=== PATIENT | male | born 1965 | race Caucasian/White ===

== ENCOUNTER 2016-10-16 12:03 | Emergency (ER) | payer OTHER ==
[~2016-10-16] VITALS: Ht 177.8 cm; Wt 74.1 kg
[~2016-10-16 12:03] MED LIST: ASPI-973 PO; BIMA2.5D5 OD; BIOT10003 PO; CETI10CA PO; CHOL200047 PO; ESOM40CA41 PO; FOLI1TAB18 PO; INSU100C8 SUBQ; INSU300I; LISI1TAB9 PO; ONDA-54 PO; PROM12.510 PO; SIMV80TA4 PO; TUMERIC PO
[2016-10-16] MEDS ORDERED: 0.9% Sodium Chloride 1,000 ML IV ONE (12:16)
[2016-10-16 12:35] VITALS: BP 113/76; PULSE 104; RESP 16; O2SAT 98
[2016-10-16 12:35] LABS: BASOPHILS % (AUTO) 0.4 % (0-3); EOSINOPHILS % (AUTO) 16.5 % (0-5); MONOCYTES % (AUTO) 11.9 % (4-12); Mean Corpuscular Hemoglobin 28.9 pg (27.0-35.0); Mean Corpuscular Volume 89.1 fL (81-100); NEUTROPHILS % (AUTO) 60.7 % (40-74); Platelet Count 420 bil/L (150-400)
--- NOTE | 2016-10-16 12:51 | ED.REPORT ---
HPI-General Illness Date of Service Oct 16, 2016 ED Provider: Bhaskar Staton MD Pt is a 51 year old male with a history of DM, HTN, and stage 4 metastatic lung cancer who presents to the ED by recommendation of his oncologist Dr. Iniguez due to hyperkalemia of 7.2 found this morning on routine labs. He is asymptomatic. He took two potassium draws at his Oncologist, and found that they were high. He was feeling nauseated, and started eating oranges on his way to the appointment. He didn't initially take insulin, but when he got home, his blood sugar was 394, which prompted him to correct with insulin. Pt reports no renal effect due to cancer. Nursing Notes Stated Complaint: HIGH POTASSIUM LEVELS/SENT BY DOC Chief Complaint: Male Abdominal Pain Nursing Notes Reviewed: Yes Allergies: Coded Allergies: TAPE (Unverified Allergy, Severe, rash, skin break, 03/01/16) latex (Verified Allergy, Unknown, 02/22/16) Scheduled ([tumeric supp]) 500 MG PO DAILY Aspirin (Aspirin) 81 Mg Tablet 81 MG PO DAILY Bimatoprost (Lumigan) 45 Drop/2.5 Ml Ophsoln 45 DROP OD HS Biotin (Biotin) 10,000 Mcg Capsule 10,000 MCG PO DAILY Cetirizine HCl (Zyrtec) 10 Mg Capsule 10 MG PO HS Cholecalciferol (Vitamin D3) (Vitamin D3) 2,000 Unit Capsule 2,000 UNIT PO DAILY Esomeprazole Magnesium (Nexium) 40 Mg Capsule.dr 40 MG PO DAILY Folic Acid (Folic Acid) 1 Mg Tablet 1 MG PO DAILY Insulin Aspart (NovoLOG U100 Insulin Vial) 100 U/Ml U 1 UNIT SUBQ DIRECTED Lisinopril / HCTZ 20-12.5 mg (Lisinopril / HCTZ 20-12.5 mg) 1 Each Tablet 1 EACH PO DAILY Simvastatin (Simvastatin) 80 Mg Tablet 80 MG PO HS Scheduled PRN Ondansetron (Ondansetron) 8 Mg Tablet 8 MG PO Q8H PRN PRN For Nausea/Vomiting Miscellaneous Medications Insulin Glargine,Hum.rec.anlog (Toujeo Solostar) 300 Unit/Ml (1.5 Ml) Insuln.pen General Time Seen by MD: 12:49 Chief Complaint Other (High potassium levels) Hx Obtained From: Patient Arrived By: Walk-in Sudden in Onset?: No Symptom Duration: 5 - 8 hours Severity: Current: No pain currently Severity: Maximum: No pain Recent Healthcare: Recent doctor visit Similar Sx Previous: No Past Medical History Past Medical History Stage 4 metastatic lung cancer Reports: Diabetes mellitus, Hypertension Past Surgical History Orthopedic surgeries Family History Noncontributory Smoking History Former Smoker Social History Alcohol Use: "Social" Drug Use: Denies drug use Other Social History: Good social support, Local resident Ambulatory Status Independent Review of Systems Full Review of Systems Respiratory: Denies: Non-productive cough, Shortness of breath Cardiovascular: Denies: Chest pain GI: Denies: Abdominal pain Complete sys rev & neg: except as marked. Physical Exam Vital Signs Vital Signs Date Time Temp Pulse Resp B/P Pulse Ox O2 Delivery O2 Flow Rate FiO2 10/16/16 14:56 36.7 98 18 112/72 98 Room Air 10/16/16 12:35 36.7 104 16 113/76 98 Room Air Initial VS: Reviewed, Vital signs abnormal Head / Eyes: Atraumatic, Normocephalic, PERRL ENT: Mucous membranes moist, Conjunctiva normal Neck: Supple, Non-tender, Full range of motion Respiratory: Breath sounds normal, Clear to auscultation, No respiratory distress Extremities: Vascular intact, Neuro intact Skin: Warm, Dry, No cyanosis Neurologic: Alert, Oriented, Nonfocal Psychiatric: Mood/affect normal, Behavior normal General/Constitutional: Awake, Alert, No acute distress, Cooperative, Not toxic appearing Cardiovascular: Regular rhythm, Heart sounds NL Heart Rate / Rhythm: Positive: Tachycardia (Rate of 100) Abdomen: Atraumatic, Soft, Non-tender Interpretation & Diagnostics Lab Results Interpretation Result Diagram: 10/16/16 1227 10/16/16 1227 Test 10/16/16 12:27 10/16/16 13:20 White Blood Count 9.6th/mm3 (3.8-10.1) Red Blood Count 4.22mil/mm3 (4.40-5.80) Hemoglobin 12.2g/dL (13.8-17.2) Hematocrit 37.6% (41.0-50.0) Mean Corpuscular Volume 89.1fL (81-100) Mean Corpuscular Hemoglobin 28.9pg (27.0-35.0) Mean Corpuscular Hemoglobin Concent 32.4% (32.0-37.0) Red Cell Distribution Width 13.8% (12.3-15.4) Platelet Count 420bil/L (150-400) Neutrophils (%) (Auto) 60.7% (40-74) Lymphocytes (%) (Auto) 10.3% (14-46) Monocytes (%) (Auto) 11.9% (4-12) Eosinophils (%) (Auto) 16.5% (0-5) Basophils (%) (Auto) 0.4% (0-3) Sodium Level 133mEq/L (134-144) Potassium Level 5.1mEq/L (3.5-5.2) Chloride Level 99mEq/L (97-108) Carbon Dioxide Level 22mmol/L (18-29) Blood Urea Nitrogen 28mg/dL (6-24) Creatinine 1.51mg/dL (0.76-1.27) Estimat Glomerular Filtration Rate 52mL/min (>59) Glucose Level 107mg/dL (60-99) Calcium Level 9.2mg/dL (8.5-10.1) Magnesium Level 1.9mg/dL (1.6-2.6) Total Bilirubin 0.3mg/dL (0.0-1.2) Aspartate Amino Transf (AST/SGOT) 32U/L (0-50) Alanine Aminotransferase (ALT/SGPT) 23U/L (0-44) Alkaline Phosphatase 89U/L (25-150) Total Protein 6.8g/dL (6.4-8.4) Albumin 3.1g/dL (3.4-5.0) Hold Levine Top Tube Received (Received) Urine Color Straw (YELLOW) Urine Appearance Hazy (CLEAR,HAZY) Urine pH 6.5 (5.0-8.0) Urine Specific [place] 1.010 (1.003-1.035) Urine Protein Negativemg/dL (NEG,TRACE) Urine Glucose (UA) 250mg/dL (NEGATIVE) Urine Ketones Negativemg/dL (NEGATIVE) Urine Occult Blood Negative (NEGATIVE) Urine Nitrite Negative (NEGATIVE) Urine Bilirubin Negative (NEGATIVE) Urine Urobilinogen Normalmg/dL (NORMAL) Urine Leukocyte Esterase Negative (NEGATIVE) Urine RBC 0-2/hpf (0-2) Urine WBC 0-5/hpf (0-5) Urine Epithelial Cells Occasional/hpf (NONE-MOD) Urine Crystals None seen (NONE SEEN) Urine Bacteria Few/hpf (NONE-FEW) Urine Hyaline Casts None/lpf (NONE) Urine Granular Casts None seen (NONE SEEN) Urine Waxy Casts None seen (NONE SEEN) Urine Red Blood Cell Casts None seen (NONE SEEN) Urine White Blood Cell Casts None seen (NONE SEEN) Urine Mucus None seen (None Seen) Urine Trichomonas None seen (NONE SEEN) Urine Yeast None (NONE SEEN) Urinalysis Comment None Urine Culture Reflexed Not indicated X-Ray Chest Interpretation Chest Xray Interpretation: IMPRESSION: 1. No radiograph evidence for pneumonia. 2. Small left effusion, unchanged. 3. Right apical mass seen on CT not well seen on the chest x-ray. Dictated by: Arlin Roy M.D. on 10/16/2016 at 14:43 Interpretation / Wet Read by: Interpret - Radiologist Re-Eval/Medical Decision Source of Hx: Old records Time of Eval: 14:25 Re-Evaluation/Progress Note: Pt rechecked. Rales on when laying supine on left side. Time of Eval: 14:47 Re-Evaluation/Progress Note: Pt rechecked. Informed pt of plan for treatment. Pt understands and agrees with plan for treatment. F/U instructions and RTER warnings given. All questions addressed. Consultation : Referral / Consult Name: Tho Iniguez MD Call Returned at: 13:30 Analog Circuit Designer: Agrees with eval, Agrees with plan Note: Consult with Oncologist. No further treatment, pt is good to go home. Counseled Regarding: Diagnosis, Lab results, Need for follow-up, When/why to return to ED Discharge & Departure Primary Impression: Hyperkalemia Additional Impression: Recurrent left pleural effusion Disposition: Home Discharge Condition All VS Reviewed: Yes Condition: Stable Patient Instructions: Hyperkalemia (ED) Additional Instructions: Your potassium was normal today at 5.1. Follow up with your primary care provider as scheduled. There is a small pleural effusion on the chest x-ray but this is about the same as it was comparing it to the CT scan from last month. Return to the Emergency Department if you experience chest pain, increased shortness of breath, or any other concerning symptoms. Let me know when you are free to go out to lunch or come over for dinner. [phone] Referrals: Zane Mejia MD (PCP) Geovanna Attestation Portions of this note were transcribed by Gigi Ramos and Elza Salazar. I, Dr. Staton personally performed the history, physical exam and medical decision-making; I reviewed and confirmed the accuracy of the information in the transcribed note. Signed by: Gigi Ramos and Geovanna Latham, 10/16/16 and 14:30 copies to: Zane Mejia MD, Kirk H MD Oct 16, 2016 12:51 Elza Whitten Oct 16, 2016 12:58 GIGI RAMOS Oct 16, 2016 14:12
[2016-10-16 12:57] LABS: Magnesium 1.9 mg/dL (1.6-2.6)
[2016-10-16 13:55] LABS: APPEARANCE,URINE HAZY (CLEAR,HAZY); COLOR,URINE STRAW (YELLOW); OCCULT BLOOD,URINE NEGATIVE (NEGATIVE); PH,URINE 6.5 (5.0-8.0); UROBILINOGEN,URINE NORMAL (NORMAL)
--- NOTE | 2016-10-16 14:48 | DRSVH ---
PROCEDURE: X-RAY CHEST, TWO VIEWS ([id number]) INDICATIONS: rales on exam TECHNIQUE: 2 views of the chest were acquired. COMPARISON: [facility], CR, XR CHEST 1VW (PORTABLE), 03/08/2016, 15:42. [facility], CT, CT CHEST ABD PELVIS W CON, 09/15/2016, 15:26. [facility], CR, XR CHEST 2VW, 03/08/2016, 9:04. FINDINGS: Surgical changes and devices: A left sided port is noted with the tip in the superior vena cava. Lungs and pleura: There is interstitial prominence, improved compared to 03/08/2016. The right parah ilar mass seen on the comparison CT is not well-visualized on chest vertebra. There is a small left p leural effusion. No pneumothorax. Mediastinum: Mediastinal contours are normal. Heart size is normal. Bones and chest wall: No suspicious bony abnormalities. Soft tissues appear unremarkable. IMPRESSION: 1. No radiograph evidence for pneumonia. 2. Small left effusion, unchanged. 3. Right apical mass seen on CT not well seen on the chest x-ray. Dictated by: Arlin Roy M.D. on 10/16/2016 at 14:43 Approved by: Arlin Roy M.D. on 10/16/2016 at 14:46
[2016-10-16 14:56] VITALS: BP 112/72; PULSE 98; RESP 18; O2SAT 98
--- NOTE | 2016-10-16 16:41 | DRSVH ---
[facility] [address] [place] [address] Echocardiogram Report Name: TAMIKA SEPULVEDA Date: 10/16/2016 Height: 70 in Hospital Exam Location: [facility] Weight: 163 lb Gender: Male BSA: 1.9 m2 : 1965 Age: 51 yrs BP: 113/76 mmHg Reason For Study: CHEST PAIN, HX PERICARDIAL EFFUSION Performed By: Chino Rodgers Referring Physician: SUSIE BLANCHARD Interpretation Summary The left ventricle is normal in size, wall thickness, and systolic function without any focal wall motion abnormalities. The ejection fraction is estimated to be 60-65%. LVEF has not changed since prior study. The right ventricle grossly appears normal in size with probable normal systolic function. The right ventricular systolic pressure is estimated at 24 mmHg assuming a right atrial pressure of 3 mm Hg. The left atrial size is normal. Right atrial size is normal. There is no significant valvular heart disease. The aortic root is normal size. There is a trace loculated pericardial effusion along the basal inferior wall. The pericardial effusion has decreased since the prior exam. Procedure: A two-dimensional transthoracic echocardiogram with color flow and Doppler was performed. The study quality was technically adequate. Comparison is made with the echocardiogram of 03/08/16. The patient was in normal sinus rhythm during the exam. Left Ventricle: The left ventricle is normal in size, wall thickness, and systolic function without any focal wall motion abnormalities. The ejection fraction is estimated to be 60-65%. Assessment of diastolic parameters indicates normal left ventricular diastolic function and normal filling pressures. Right Ventricle: The right ventricle grossly appears normal in size with probable normal systolic function. Atria: The left atrial size is normal. Right atrial size is normal. The interatrial septum is intact with no evidence for an atrial septal defect. Mitral Valve: The mitral valve is normal. There is trace mitral regurgitation. Aortic Valve: The aortic valve is normal in structure and function. No aortic regurgitation is present. Tricuspid Valve: The tricuspid valve is normal. There is a trace or physiologic amount of tricuspid regurgitation. The right ventricular systolic pressure is estimated at 24 mmHg assuming a right atrial pressure of 3 mm Hg. Pulmonic Valve: The pulmonic valve leaflets are thin and pliable; valve motion is normal. There is a trace or physiologic amount of pulmonic regurgitation. There is no significant valvular heart disease. Great Vessels: The aortic root is normal size. The dimensions of the ascending aorta are normal. The pulmonary artery is normal size. The IVC is of normal diameter and collapses greater than 50% with a sniff. This suggests a low right atrial pressure of 3 mm Hg. Pericardium/ Pleura There is a trace loculated pericardial effusion. The pericardial effusion has decreased since the prior exam. There is no pleural effusion. MMode/2D Measurements & Calculations LVIDd: 4.5 cm RA long axis LVOT diam: 2.0 cm LVIDs: 3.4 cm LA A2 area: 13.9 cm AoV Opening FS: 23.0 % LA A4 area: 15.1 cm RA area EPSS: 0.25 cm LA length (vol) Ao root diam IVSd: 0.84 cm : 9.3 cm LVPWd: 0.71 cm LA vol: 43.4 ml RA vol asc Aorta Diam LA vol index : 18.8 ml RA Ao Arch Diam (Prox : 22.7 ml/m2 : 9.8 mm2 Trans): 2.3 cm LV zheng. diameter/BSA LV sys. diameter/BSA RVD1 (basal) (cm/m^2): 2.3 (cm/m^2): 1.8 Doppler Measurements & Calculations Ao V2 max: 103.3 cm/secMV E max amanuel MV E/A: 2.0 TR max amanuel Ao max P.3 mmHg : 90.7 cm/sec Med Peak E' Amanuel : 226.6 cm/sec Ao mean P.6 mmHg MV A max amanuel TR max PG LVOT Max Amanuel : 46.2 cm/sec E/E' med: 12.0 : 20.5 mmHg : 93.0 cm/sec Lat Peak E' Amanuel PA V2 max : 100.2 cm/sec KRISH(I,D): 3.0 cm E/E' lat: 11.8 PA mean PG sev ratio: 0.92 E/e' average : 2.3 mmHg MV dec time: 0.16 sec Ao V2 mean LV V1 max PG PA V2 mean : 79.1 cm/sec : 72.5 cm/sec Ao V2 VTI LV V1 VTI: 15.2 cmPA pr(Accel) : 46.8 mmHg KRISH(V,D): 2.9 cm2 KRISH indexed to BSA (cm^2/m^2): 1.6 Reading Physician:PM
== END 2016-10-16 14:59 | disposition home or self-care (01) ==
LOC: SED 12:03
DX: E87.5 Hyperkalemia (principal); J90 Pleural effusion, not elsewhere classified; E11.9 Type 2 diabetes mellitus without complications; I10 Essential (primary) hypertension; C34.90 Malignant neoplasm of unspecified part of unspecified bronchus or lung; Z79.4 Long term (current) use of insulin; Z79.82 Long term (current) use of aspirin; Z87.891 Personal history of nicotine dependence; Z91.040 Latex allergy status
CPT/HCPCS: 36415; 71020; 80053; 81000; 83735; 85025; 96360; 99284; C8929; J7030

== ENCOUNTER 2016-11-20 20:04 | Inpatient (IN) | payer OTHER ==
[~2016-11-20] VITALS: Ht 177.8 cm; Wt 81.6 kg
[~2016-11-20 20:04] MED LIST changes: +BIMA2.5D5 BOTH_EYES; -BIMA2.5D5 OD; -INSU300I; +INSU300I SUBQ; -PROM12.510 PO
[2016-11-20 20:14] VITALS: BP 128/72; PULSE 82; RESP 16; O2SAT 97
[2016-11-20 20:32] VITALS: BP 82/49; PULSE 90; RESP 16; O2SAT 95
--- NOTE | 2016-11-20 21:07 | ED.REPORT ---
HPI-General Illness Date of Service Nov 20, 2016 ED Provider: Jl Cervantes MD 51 y/o male with a hx of DM, HTN, metastatic lung cancer, moderate renal insufficiency and recent hx of hyperkalemia presents to the ED complaining of ascites with increasing pressure for a week. His lung cancer has been extending into the peritoneum after 2 courses of chemotherapy. He then developed pericardial and pleural effusions and rapidly advancing ascites. The pt was discharged from [facility] 3 days ago where he had a chest tube placed in the left side with cardiac window due to fluid and pericardial effusions. Today, the pt is experiencing fullness and discomfort in the abdomen and wants a tap. He reports some shortness of breath due to fluid collection. He denies fever, chills, chest pain and any other symptoms. Nursing Notes Stated Complaint: ASCITES Chief Complaint: Male Abdominal Pain Nursing Notes Reviewed: Yes Allergies: Coded Allergies: TAPE (Unverified Allergy, Severe, rash, skin break, 03/01/16) latex (Verified Allergy, Unknown, 02/22/16) Scheduled Acetaminophen (Acetaminophen) 500 Mg Tablet 1,000 MG PO HS TAKE WITH TYLENOL Aspirin (Aspirin) 81 Mg Tablet 81 MG PO QAM Bimatoprost (Lumigan) 45 Drop/2.5 Ml Ophsoln 1 DROP BOTH_EYES HS Biotin (Biotin) 10,000 Mcg Capsule 10,000 MCG PO QAM Calcium Carbonate (Tums) 500 Mg Tab.chew 500 MG PO TIDWM Cetirizine HCl (Zyrtec) 10 Mg Capsule 20 MG PO HS Cholecalciferol (Vitamin D3) (Vitamin D3) 2,000 Unit Capsule 2,000 UNIT PO QAM Folic Acid (Folic Acid) 1 Mg Tablet 1 MG PO QAM Insulin Aspart (NovoLOG U100 Insulin Vial) 100 U/Ml U 1-20 UNIT SUBQ DIRECTED CARB COUNTS 1 UNIT/3 GRAMS CARBOHYDRATES AND CORRECTION FACTOR OF 1 UNIT FOR EVERY 10 POINTS ABOVE 150 MG/DL BLOOD SUGAR IS ABOVE. Insulin Glargine,Hum.rec.anlog (Toujeo Solostar) 300 Unit/Ml (1.5 Ml) Insuln.pen 20 UNITS SUBQ HS Metoprolol Tartrate (Metoprolol Tartrate) 25 Mg Tablet 25 MG PO BID Simvastatin (Simvastatin) 80 Mg Tablet 80 MG PO QAM Tamsulosin (Flomax) 0.4 Mg Capsule 0.4 MG PO HS Tramadol ER (Tramadol ER) 100 Mg Tab.er.24h 100 MG PO HS TAKE WITH TYLENOL Turmeric Root Extract (Turmeric) 500 Mg Capsule 500 MG PO QAM Scheduled PRN Hydroxyzine HCl (HydrOXYzine Hcl) 50 Mg Tablet 50 MG PO TID PRN PRN For Itching Ondansetron (Ondansetron) 8 Mg Tablet 8 MG PO Q8H PRN PRN For Nausea/Vomiting Promethazine (Promethazine) 25 Mg Tablet 25 MG PO Q8H PRN PRN For Nausea/ Vomiting Tramadol (Tramadol) 50 Mg Tablet 50 MG PO Q8H PRN PRN For Pain General Time Seen by MD: 21:02 Chief Complaint Other (ascites) Hx Obtained From: Patient Arrived By: Walk-in Sudden in Onset?: No Onset Occurred: 1 week ago Symptom Duration: Since onset Location: : Abdomen Quality: Fullness Severity: Current: Moderate Severity: Maximum: Moderate Recent Healthcare: Recent doctor visit Similar Sx Previous: Yes Past Medical History Past Medical History Stage 4 metastatic lung cancer moderate renal insufficiency hyperkalemia Diabetes mellitus Hypertension Past Surgical History Orthopedic surgeries Family History Noncontributory Smoking History Former Smoker Social History Alcohol Use: "Social" Drug Use: Denies drug use Other Social History: Good social support, Local resident Ambulatory Status Independent Review of Systems Reports: ascites Full Review of Systems Constitutional: Denies: Chills, Fever Respiratory: Reports: Shortness of breath Cardiovascular: Denies: Chest pain GI: Reports: Abdominal pain Complete sys rev & neg: except as marked. Physical Exam Vital Signs Vital Signs Date Time Temp Pulse Resp B/P Pulse Ox O2 Delivery O2 Flow Rate FiO2 11/21/16 00:53 91 19 87/42 94 Nasal Cannula 1 11/20/16 22:35 88 23 89/49 94 Nasal Cannula 1 11/20/16 21:40 87 26 84/49 93 Room Air 11/20/16 20:32 90 16 82/49 95 Room Air Initial VS: Reviewed Head / Eyes: Atraumatic, Normocephalic Neck: Supple, Non-tender, Full range of motion Extremities: Vascular intact, Neuro intact, No swelling, No tenderness Skin: Warm, Dry, No cyanosis Neurologic: Alert, Oriented, Nonfocal General/Constitutional: Awake, Alert, Cooperative Distress / Hydration: Positive: Distress mild Appearance / Presentation: Positive: Pale, Uncomfortable Chronically ill ENT: Atraumatic, Airway patent Mouth: Positive: Mucous membranes dry Respiratory / Chest: Atraumatic, No respiratory distress, No wheezing, No chest tenderness Dull sounds at left base. Cardiovascular: Heart rate NL, Regular rhythm, Heart sounds NL, No gallop, No murmurs, No rubs Pulse at 88 and BP at 184/40 despite Metoprolol Bilateral 1+ edema and moderate scrotal edema Abdomen: Atraumatic, Soft Bowel Sounds / Distention: Positive: Bowel sounds hypoactive, Distention moderate Interpretation & Diagnostics Lab Results Interpretation Result Diagram: 11/20/16211011/20/16 211 Test 11/20/16 21:11 11/20/16 21:30 11/20/16 23:23 White Blood Count 22.7th/mm3 (3.8-10.1) Red Blood Count 4.21mil/mm3 (4.40-5.80) Hemoglobin 11.5g/dL (13.8-17.2) Hematocrit 34.7% (41.0-50.0) Mean Corpuscular Volume 82.4fL (81-100) Mean Corpuscular Hemoglobin 27.3pg (27.0-35.0) Mean Corpuscular Hemoglobin Concent 33.1% (32.0-37.0) Red Cell Distribution Width 15.5% (12.3-15.4) Platelet Count 797bil/L (150-400) Neutrophils (%) (Auto) 66.5% (40-74) Lymphocytes (%) (Auto) 5.4% (14-46) Monocytes (%) (Auto) 12.2% (4-12) Eosinophils (%) (Auto) 14.7% (0-5) Basophils (%) (Auto) 0.2% (0-3) Prothrombin Time 11.6sec (8.1-12.5) Prothromb Time International Ratio 1.08ratio Activated Partial Thromboplast Time 30.1sec (22.8-33.0) Sodium Level 130mEq/L (134-144) Potassium Level 5.1mEq/L (3.5-5.2) Chloride Level 91mEq/L (97-108) Carbon Dioxide Level 22mmol/L (18-29) Blood Urea Nitrogen 35mg/dL (6-24) Creatinine 1.94mg/dL (0.76-1.27) Estimat Glomerular Filtration Rate 39mL/min (>59) Glucose Level 304mg/dL (60-99) Calcium Level 9.2mg/dL (8.5-10.1) Magnesium Level 1.7mg/dL (1.6-2.6) Total Bilirubin 0.3mg/dL (0.0-1.2) Aspartate Amino Transf (AST/SGOT) 25U/L (0-50) Alanine Aminotransferase (ALT/SGPT) 17U/L (0-44) Alkaline Phosphatase 135U/L (25-150) Troponin T 0.010ug/L (0.0-0.011) Total Protein 6.8g/dL (6.4-8.4) Albumin 2.6g/dL (3.4-5.0) Lipase 9U/L (13-60) Procalcitonin 1.55ng/mL (0.00-0.08) Hold Levine Top Tube Received (Received) Hold Mulberry Top Tube Received (Received) Urine Color Yellow (YELLOW) Urine Appearance Clear (CLEAR,HAZY) Urine pH 5.5 (5.0-8.0) Urine Specific [place] 1.010 (1.003-1.035) Urine Protein Negativemg/dL (NEG,TRACE) Urine Glucose (UA) Negativemg/dL (NEGATIVE) Urine Ketones Negativemg/dL (NEGATIVE) Urine Occult Blood Negative (NEGATIVE) Urine Nitrite Negative (NEGATIVE) Urine Bilirubin Negative (NEGATIVE) Urine Urobilinogen Normalmg/dL (NORMAL) Urine Leukocyte Esterase Negative (NEGATIVE) Urine RBC 0-2/hpf (0-2) Urine WBC 0-5/hpf (0-5) Urine Epithelial Cells Occasional/hpf (NONE-MOD) Urine Crystals None seen (NONE SEEN) Urine Bacteria None/hpf (NONE-FEW) Urine Hyaline Casts 5/20/lpf (NONE) Urine Granular Casts None seen (NONE SEEN) Urine Waxy Casts None seen (NONE SEEN) Urine Red Blood Cell Casts None seen (NONE SEEN) Urine White Blood Cell Casts None seen (NONE SEEN) Urine Mucus Present (None Seen) Urine Trichomonas None seen (NONE SEEN) Urine Yeast None (NONE SEEN) Urinalysis Comment None Urine Culture Reflexed Not indicated ECG Interpretation ECG Interpretation: Normal sinus rhythm. Rate 87. Abnormal T, consider ischemia and diffuse leads. Time: 20:55 Interpreted by: ED physician X-Ray Chest Interpretation Chest Xray Interpretation: IMPRESSION: Findings suspicious for left basilar pneumonia with parapneumonic effusion. Dictated by: Layla Hart M.D. on 11/20/2016 at 22:01 Approved by: Layla Hart M.D. on 11/20/2016 at 22:02 View: Portable, 1 view Interpretation / Wet Read by: Interpret - Radiologist Procedures Paracentesis at 00:25 Identified big open area of fluid with ultrasound and inserted a catheter into the abdominal wall, just above the left iliac crest. Routine prep and drape. Standard kit was used and a catheter over needle device used to enter the abdomen through Z track. The attached syringe was used to obtain at 10 mm sample, and then the syringe and needle were withdrawn. The included tubing was then attached to the catheter remaining in the peritoneal cavity, and 1000cc of clear, yellow peritoneal fluid was obtained., the sample was sent to lab for culture and Gram stain.. He tolerated this well without hypotension or other complications. No bleeding subsequently. Area was dressed with a Band- Aid. Re-Eval/Medical Decision Med Decision/Clinical Course 51-year-old end-stage adenocarcinoma lung metastases to liver and peritoneum with advancing ascites pleural effusions and recent pericardial effusions treated with a pericardial window. He presents requesting a tap and the various risks benefits alternatives were discussed in detail. He is uncomfortable in his current state with moderate tension apparent. However, the protein losses or considerable and he was advised to avoid this as a therapeutic strategy if possible. We need to do a diagnostic tap in any case, as he has tachycardia, hypotension, apparent pneumonia on x-ray, and sepsis by criteria. A tap was performed and sent. Per his request and after the above discussion, 900 mL of fluid total were taken off with some physical relief of his abdominal distention and pressure. He is admitted now for further treatment of his sepsis and pneumonia, with hopes to get him to [facility] [place] for a clinical trial of a chemotherapeutic agent for his adenocarcinoma. He is admitted now in guarded condition. Critical care time independent of procedures thirty minutes. Procedure: abdominal paracentesis Source of Hx: Old records Time of Eval: 22:42 Re-Evaluation/Progress Note: Rechecked pt. Discussed lab results, imaging results, diagnosis and plan to admit. Pt understands and agrees with the plan for admission. All questions addressed. Consultation : Referral / Consult Name: Edvin Flanagan MD Consulted With: Hospitalist Call Returned at: 00:10 Milk Drier: Will see patient, Agrees with eval, Agrees with plan, Accepts admit Counseled Regarding: Diagnosis, Lab results, Need for admission Discharge & Departure Primary Impression: Hospital-acquired pneumonia Additional Impressions: Sepsis Sepsis type: sepsis due to unspecified organism Qualified Code: A41.9 - Sepsis, unspecified organism Metastatic cancer to lung Laterality: right Qualified Code: C78.01 - Secondary malignant neoplasm of right lung Renal insufficiency Diabetes mellitus Diabetes mellitus type: type 1 Diabetes mellitus complication status: with unspecified complications Qualified Code: E10.8 - Type 1 diabetes mellitus with unspecified complications Ascites Ascites type: other type Qualified Code: R18.8 - Other ascites Disposition: ADMITTED TO HOSPITAL Discharge Condition All VS Reviewed: Yes Referrals: Zane Mejia MD (PCP) Crit Care Except Billable Proc Time Spent: 30-74 minutes (thirty minutes) Services Performed: Patient management by me, Time spent at bedside, Reviewing test results, Reviewing imaging, Discussing patient care, Documentation in record Scribe Attestation Portions of this note were transcribed by Alexx Sanders. I, Dr. Cervantes, personally performed the history, physical exam and medical decision-making;I reviewed and confirmed the accuracy of the information in the transcribed note. Signed by Geovanna Dempsey. 11/21/16 00:10 copies to: Zane Mejia MD, Christopher W MD Nov 20, 2016 21:07 Alexx Sanders Nov 20, 2016 21:24
[2016-11-20 21:26] LABS: BASOPHILS % (AUTO) 0.2 % (0-3)
[2016-11-20] MEDS ORDERED: 0.9% Sodium Chloride 1,000 ML IV ONE (21:29)
[2016-11-20 21:40] VITALS: BP 84/49; PULSE 87; RESP 26; O2SAT 93
[2016-11-20 21:41] LABS: EOSINOPHILS % (AUTO) 14.7 % (0-5); MONOCYTES % (AUTO) 12.2 % (4-12); Mean Corpuscular Hemoglobin 27.3 pg (27.0-35.0); Mean Corpuscular Volume 82.4 fL (81-100); NEUTROPHILS % (AUTO) 66.5 % (40-74)
[2016-11-20 21:50] LABS: INR 1.08 ratio
[2016-11-20 22:03] LABS: TROPONIN T 0.01 ug/L (0.0-0.011)
--- NOTE | 2016-11-20 22:03 | DRSVH ---
PROCEDURE: X-RAY CHEST ONE VIEW, PORTABLE ([id number]) INDICATIONS: CHEST PAIN AND ABDOMINAL PAIN TECHNIQUE: One view of the chest was acquired. COMPARISON: [facility], CR, XR CHEST 2VW, 10/16/2016, 14:27. FINDINGS: Surgical changes and devices: Left Port-A-Cath is unchanged. Lungs and pleura: New pulmonary consolidation is present at the left lung base. There is a moderate l eft pleural effusion. Mediastinum: Mediastinal contours appear normal. Heart size is normal. Bones and chest wall: No suspicious bony lesions. Overlying soft tissues appear unremarkable. IMPRESSION: Findings suspicious for left basilar pneumonia with parapneumonic effusion. Dictated by: Layla Hart M.D. on 11/20/2016 at 22:01 Approved by: Layla Hart M.D. on 11/20/2016 at 22:02
[2016-11-20] MEDS: fentaNYL-PF 50 mCg/mL 2 mL Inj IVPUSH PRN (22:07)
[2016-11-20 22:08] LABS: Platelet Count 797 bil/L (150-400)
[2016-11-20] MEDS ORDERED: Ondansetron 2 mg/mL 2 mL Inj IVPUSH ONE (22:10)
[2016-11-20 22:14] LABS: Magnesium 1.7 mg/dL (1.6-2.6)
[2016-11-20 22:35] VITALS: BP 89/49; PULSE 88; RESP 23; O2SAT 94
[2016-11-20] MEDS ORDERED: Vancomycin Dose per Pharmacist XX ONE (23:30)
[2016-11-20] MEDS ORDERED: Piperacillin-Tazo 3.375 Gm Inj 3.375 GM in Dextrose 5% Minibag Plus 50 ML IV ONE (23:30)
[2016-11-20 23:32] LABS: APPEARANCE,URINE CLEAR (CLEAR,HAZY); COLOR,URINE YELLOW (YELLOW); OCCULT BLOOD,URINE NEGATIVE (NEGATIVE); PH,URINE 5.5 (5.0-8.0); UROBILINOGEN,URINE NORMAL (NORMAL)
[2016-11-20] MEDS ORDERED: Vancomycin Inj 1,500 MG in 0.9% Sodium Chloride 500 ML IV ONE (23:40)
[2016-11-21] VITALS (12 sets, daily range): BP systolic 84–103; BP diastolic 42–64; PULSE 75–114; RESP 14–20; O2SAT 89–95
[2016-11-21] MEDS: fentaNYL-PF 50 mCg/mL 2 mL Inj IVPUSH PRN (00:08)
[2016-11-21] MEDS ORDERED: TRAM100T2 PO (01:06)
[2016-11-21] MEDS ORDERED: ACET-171 PO (01:07)
[2016-11-21] MEDS ORDERED: Albuterol 2.5 mg/3 mL Inhalation Solution NEB PRN (01:10)
[2016-11-21] MEDS ORDERED: Polyethylene Glycol (PEG) 17 Gm Powder PO PRN (01:10)
[2016-11-21] MEDS ORDERED: Alum-Mag Hydrox-Simeth 30 mL Suspension PO PRN (01:10)
[2016-11-21] MEDS ORDERED: Albuterol-Ipratropium 3 mL Inhalation Solution NEB PRN (01:10)
[2016-11-21] MEDS ORDERED: HYDROcodone-APAP 5-325 mg Tablet PO PRN (01:10)
[2016-11-21] MEDS ORDERED: PROM25TA14 PO (01:15)
[2016-11-21] MEDS ORDERED: CALC500T9 PO (01:15)
[2016-11-21] MEDS ORDERED: TURM500C3 PO (01:15)
[2016-11-21] MEDS ORDERED: METO25TA6 PO (01:15)
[2016-11-21] MEDS ORDERED: TRAM50TA2 PO (01:15)
[2016-11-21] MEDS ORDERED: TAMS0.4C98 PO (01:17)
[2016-11-21] MEDS ORDERED: HYDR50TA76 PO (01:17)
[2016-11-21] MEDS ORDERED: levoFLOXacin Dose Per Pharmacist XX ONE (01:20)
[2016-11-21] MEDS ORDERED: Levofloxacin 750 mg/150 mL D5W IV ONE (01:30)
[2016-11-21] MEDS ORDERED: hydrOXYzine Pamoate 25 mg Capsule PO PRN (01:55)
[2016-11-21] MEDS ORDERED: Glucose 40% Oral Gel 15 Gm Tube PO PRN (01:55)
--- NOTE | 2016-11-21 02:30 | PCM.HPMED ---
Subjective Date of Service Nov 21, 2016 Primary Provider: Admitting Physician: Edvin Flanagan MD Primary Care Physician: Zane Mejia MD Attending Physician: Edvin Flanagan MD Chief Complaint: abd distension History of Present Illness: 51 yo m with history of T1DM, metastatic right lung adenocarcinoma, hypertension , and mild renal insufficiency who presented to the ED for complaints of increasing ascites and abdominal distention x 1 week. Patient baseline has pericardial and pleural effusion and abdominal ascites due to his lung ca. He reports that he was admitted at [facility] in [place], [place] about 1.5 weeks ago for SOB and SVT episodes. He reports also receiving a thoracentesis of his left lung and also a cardiac window for his effusions. Since discharge 3 days ago, he has been feeling somewhat more short of breath, tired, and uncomfortable due to his rapidly increasing ascites. He reports he had a diagnostic paracentesis in [place], but not therapeutic. Prior to that, he did not have a paracentesis except when he was diagnosed with Stage 4 metastatic lung adenocarcinoma on Feb at this hospital. Aside from the abdominal distension and mild SOB, he also has had a chronic cough but no increased sputum production. He has not had any fevers, chills, diarrhea, or dysuria. In the ED, he was afebrile but hypotensive at 82/49, with a pulse of 90 and saturating about 94% on RA. His CBC was remarkable for a white count of 22.7, plt count of 797 His CMP showed mild hyponatremia, but an elevated Cr of 1.94 and lactic acid of 2.1. His procalcitonin was 1.55 He had a portable CXR that showed new left lung consolidation with effusion. A therapeutic paracentesis was performed by ED physician, withdrawing approximately 1Liter of straw colored fluid. Allergies Coded Allergies: TAPE (Unverified Allergy, Severe, rash, skin break, 03/01/16) latex (Verified Allergy, Unknown, 02/22/16) Home Medications Tylenol 500 mg daily at bedtime Aspirin 81 mg Lumigan Biotin Tums Zyrtec vitamin D3 Hydroxyzine Folic acid NovoLog 1 unit per 3 g of carbohydrates Toujeo 20 units daily at bedtime Zofran Metoprolol tartrate 25 mg twice a day Promethazine Simvastatin 80 mg daily Flomax 0.4 mg Tramadol ER Turmeric PMH 1. Type 1 diabetes. 2. Metastatic Lung Adenocarcinoma 3. Hypertension. 4. GE reflux disease. 5. Diabetic retinopathy with prior bilateral vitrectomy. 6. Hyperlipidemia. Surgical History Carpal tunnel release Varicocele repair Family History Family history of diabetes Social History Occupation: Nurse practitioner Hx Alcohol Use: Yes (rare) Hx Substance Use: No Hx Tobacco Use: No Smoking Status: Former Smoker Living Arrangement: with Family Exam Vital Signs Vital Sign - Last Date Time Temp Pulse Resp B/P Pulse Ox O2 Delivery O2 Flow Rate FiO2 11/21/16 00:53 91 19 87/42 94 Room Air Exam General: Well developed chronically ill appearing male who appears in NAD HEENT: Normocephalic, atraumatic. PERRLA Anicteric sclerae, moist conjunctivae. Oropharynx free of erythema and cobble stoning with moist mucosa. Neck: Soft, nontender, trachea midline Cardiovascular: Regular rate and rhythm with soft systolic murmur, [place] on left upper chest Pulmonary: Bibasilar rales L>R. Mild rhonchi noted. Normal respiratory effort, mild cough noted. Abdomen: Soft, moderately distended, normoactive BS present, nontender to palpation, no rashes noted. Extremities: No clubbing, cyanosis, edema noted Skin: Warm, dry, intact Neurological: Cranial nerves grossly intact. No focal weakness, sensation grossly intact, MS grossly intact and equal Psychiatric: Normal mood and affect. Alert and oriented to person, place, and time. Cooperative and pleasant Lab and Diagnostics Result Diagram: 11/20/16211011/20/162110 X-Rays, CTs and MRIs PROCEDURE: X-RAY CHEST ONE VIEW, PORTABLE ([id number]) IMPRESSION: Findings suspicious for left basilar pneumonia with parapneumonic effusion. Assessment & Plan 51 yo m with history of T1DM, metastatic right lung adenocarcinoma, hypertension , and mild renal insufficiency who presented to the ED for complaints of increasing ascites and abdominal distention x 1 week. Admitted for therapeutic paracentesis and eval of possible Healthcare acquired pneumonia. Sepsis, Present on admission Patient does meet criteria by tachypnea, leukocytosis, and lung as source of infection and hypotension, although he appears stable. He was recently started on metoprolol and flomax at his hospital stay in [place], which may falsely decrease his bp. But in this immunocompromised patient with a new LLL consolidation, some SOB, and mild cough, we will plan to be cautious until we have further evidence otherwise. Will initiate early goal directed therapy. Blood cultures drawn and antibiotics started in the ED on 11/20 His lactic acid was 2.1 on admit, will continue to monitor closely Possible healthcare associated pneumonia, POA New LLL consolidation after his hospital stay a week ago. Pt currently stable appearing, only mildly short of breath, which may be chronic, and he reports his cough is improving also. Started on IV Levaquin, Vancomycin, and Zosyn in the ED for empiric therapy. Blood cultures and sputum cultures pending. Procalcitonin of 1.55 on admission ID consulted for further evaluation Abdominal Ascites, POA Patient's primary reason for admission due to his increased discomfort. His symptoms are improved after 1 Liter was removed by ED physician. Ascitic fluid sent for cytology also. Will continue to monitor Hypotension, POA May be due to disease process or also due to recently started metoprolol and flomax. Will treat with fluids as above and hold Metoprolol and Flomax. If SVTs return, will resume Metoprolol at lower dosage. Placed on Telemetry for Cv monitoring Likely acute on chronic renal insufficiency, POA Bun/Cr of 35/1.94 on admission. Likely multifactorial causes in this complex patient. Will continue to monitor and avoid nephrotoxic agents. If not improving with hydration, consider Nephrology consult Type I diabetes mellitus, POA Patient reports his sugars have been difficult to control with his uneven diet and previous use of steroids. Will check A1c and place on Medium Dose correction scale. Will switch his Toujeo to 20 units of Lantus QHS. Metastatic lung adenocarcinoma, POA As managed by Oncologist Dr. Iniguez, Notify Oncology of admission in the AM Pain management with Tramadol and percocet prn Tylenol prn fever/pain Zofran prn n/v Bowel regimen prn constipation CODE STATUS: Full resuscitation Patient is admitted under inpatient status with expected length of stay greater than 2 midnights due to severity of presenting symptoms, risk of adverse event, and complexity of treatment plan. Pain Evaluation: Adequate Pain Control VTE Prophylaxis: Sub-Q Heparin (Unfractionated) Resuscitation Status: CPR: Attempt Resuscitation Rufino Franz DO Nov 21, 2016 01:34
[2016-11-21] MEDS ORDERED: Dextrose 10% 250 ML IV PRN (03:10)
[2016-11-21] MEDS ORDERED: Ondansetron 2 mg/mL 2 mL Inj IVPUSH PRN (03:10)
--- NOTE | 2016-11-21 03:44 | NUR ---
Pt rec'd from ED at 0200. Pain 2/10 at this time. BG 272, VS within pt's baseline per ED RN. Sherlyn running 333/hr per pharmacy.
[2016-11-21] MEDS ORDERED: Insulin LISPRO 300 Unit/3 mL Inj SUBQ ONE (03:45)
[2016-11-21] MEDS ORDERED: Insulin GLARgine 100 Unit/mL Syringe SUBQ ONE (03:45)
--- NOTE | 2016-11-21 05:45 | NUR ---
Labs/pain/resp Lactic acid trending down, 1.1 at 0430. Reports 5/10 generalized back pain, resolved with MS 2mg IVP x1. LUQ chest tube insertion site approximated with suture, no erythema/warmth/drainage noted. LLQ paracentesis puncture site dressed with band aid, no drainage noted. Maintains 95% on 1L NC, reports severe dyspnea with exertion, comfortable at rest. Rales throughout, decreased at bases. Care continues.
[2016-11-21 07:33] LABS: Mean Corpuscular Volume 84.8 fL (81-100); Platelet Count 594 bil/L (150-400)
[2016-11-21] MEDS ORDERED: Insulin LISPRO 300 Unit/3 mL Inj SUBQ SCH ×2 (08:00→12:00)
[2016-11-21 08:29] LABS: BASOPHILS % (AUTO) 0 % (0-3); EOSINOPHILS % (AUTO) 22 % (0-5); MONOCYTES % (AUTO) 9 % (4-12); NEUTROPHILS % (AUTO) 59 % (40-74)
[2016-11-21] MEDS ORDERED: TRAMADOL 100 MG PO SCH (08:30)
[2016-11-21] MEDS: Heparin 5,000 Unit/mL Inj SUBQ SCH ×2 (08:45→16:30)
--- NOTE | 2016-11-21 10:33 | CONS ---
[address] [address] CONSULTATION REPORT PATIENT: TAMIKA SEPULVEDA : 1965 MR#: [id number] ADMIT: 11/21/2016 JOB ID: [id number] DATE OF SERVICE: 11/21/2016 INFECTIOUS DISEASE CONSULTATION: I thank Dr. Franz for this timely consult. DATE OF SERVICE: REASON FOR CONSULTATION: Left-sided pulmonary infiltrate in a patient with extensive metastatic malignancy. HISTORY OF PRESENT ILLNESS: The patient is a 51-year-old gentleman who I met in February of last year. At that time, the patient had presented with a pericardial effusion as well as pleural effusion which was relatively fulminant in onset. 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 The patient, since that time, has received aggressive therapy including immunotherapy and chemotherapy with some initial response but eventually failed. For the past month or so, he has not been receiving any chemo and he is hoping to get into a clinical trial at the [facility] in the next few days for a new and as of yet not well studied experimental therapy. He was recently traveling in [place] with his family when he developed shortness of breath and abdominal pain. He was hospitalized just last week in [place] and underwent a pericardial window as well as what sounds like thoracentesis and paracentesis for his pericardial and pleural effusions as well as increasing ascites due to peritoneal implants and liver mets. During his hospital stay in [place], the patient tells us that he was evaluated for possible infection and given antibiotics for a couple days but they eventually decided that there was no infection at all and his antibiotics were stopped. Subsequently he has returned home here to [facility] and developed increasing abdominal swelling and actually went to the emergency department hoping he could get a tap because of increasing abdominal distention. At that time, in the ED here, he reported he was also a little bit more short of breath than his baseline shortness of breath which has existed since his cancer diagnosis. On that basis, he got a chest x-ray, and he was noted to have a pleural effusion and possible infiltrate on the left that was new from a month ago when he last had a chest x-ray here. Because of that and some borderline hypotension and tachycardia, it was thought that he might have a significant pneumonia, and for that reason, he was admitted to this facility. Also last yesterday after admission through the ED, he had about a 1 L paracentesis done which made his abdomen feel somewhat better. He was started on very broad-spectrum antibiotics for a possible healthcare associated pneumonia with vanc, levo and Zosyn as he had just been in the hospital in [place], [place] for the pericardial window and paracentesis there. The patient tells us that he does not think he has any infection. He states he has had no fevers, chills or sweats and that his cough and shortness of breath are about at baseline for him since the onset of his malignancy. He does note he gets short of breath with any sustained exertion and that has not really change but minimal cough which is dry and no pleuritic chest pain and from his point of view, no symptoms of pneumonia. This morning he states that his main problem is the reaccumulating ascites which already seem to have gotten worse again since his last paracentesis just yesterday evening. The patient is anxious to get out of this hospital and get down to the [facility] which we can fully understand as they are hoping to enroll him in a study which at least gives him some degree of hope in terms of this grim overall situation with a widely metastatic and chemotherapy refractory malignancy. PAST MEDICAL HISTORY: 1. Metastatic adenocarcinoma of the lung with involvement of the pleural space, pericardium, liver and peritoneal implants. a. Recurrent pleural effusion. b. Recurrent pericardial effusion status post window. c. Recurrent ascites which can be massive. d. Progressive malnutrition as result of his tumor. 2. Type 1 diabetes mellitus. 3. Hypertension. SOCIAL HISTORY: The patient is a non smoker, nondrinker, except for the occasional sip of alcohol or a cigar but basically no smoking, no drinking. He has never lived outside the [place] though we has traveled to [place]. He has been PPD negative during on work place evaluations and more recently a QuantiFERON Gold negative here. He has no unusual foods or hobbies. FAMILY HISTORY: Negative for TB in first and second-degree relatives. REVIEW OF SYSTEMS: At this point he has no headache or visual change. No sore throat, odynophagia or dysphagia. He has not noticed any swollen lymph nodes. He does note he is short of breath with exertion and that situation has persisted since his diagnosis in February. Minimal dry cough at this point. No pleuritic chest pain. No hemoptysis. He notes that his respiratory symptoms, if anything, are better since the pericardial window was done last week in [place]. We await those hospital records. He has recurrent abdominal distention which in some ways is becoming his most acute problem. This is associated with shortness of breath because of just compression from his swollen abdomen. It is also associated with just discomfort and trouble getting around. He also gets scrotal swelling whenever his abdomen swells. He does have some degree of lower extremity edema as well though it is fairly minimal. He is able to walk and even drive a car but he is getting progressively weaker. The remainder of the review of systems is negative. PHYSICAL EXAMINATION: Reveals a chronically ill gentleman in no acute distress. His current temperature 36.3. He has been afebrile since admission. Pulse 91, respiratory rate 16, blood pressure 93/57. He is saturating 92% on room air at this point and states he has no need for any supplemental oxygen. Note that his blood pressures on prior admissions tended to be at 110 systolic, now in the 90s. The patient's mental status is sharp. He has an appropriately depressed mood as he realizes his options are becoming limited. That stated though, he does express some optimism about his upcoming trip to the [facility]. Head is without trauma. No temporal wasting. His eyes without conjunctivitis or scleral icterus. Oral cavity: No thrush or hairy leukoplakia. No cervical adenopathy. His neck is supple. Lungs are notable for decreased breath sounds and crackles at the left base. Right lung relatively clear. Cardiac tones distant perhaps but they are relatively crisp. Abdomen is distended with moderate ascites. There is diffuse abdominal tenderness without focality that I can appreciate. He does have some degree of scrotal swelling which he reports is about at baseline. Lower extremities without significant edema. He does have good peripheral pulses. No evidence of synovitis. Reasonable strength throughout in terms of his neurologic examination. No sensory abnormalities are appreciated. There is no skin rash. He has a Port-A-Cath in his left upper chest which is benign. LABORATORIES: Include a white count yesterday 22,000, today 19,000. His platelet count 594,000. The differential on the white count 60% neutrophils, relatively normal, with 22% eosinophils, 3% bands. His creatinine 1.66. Potassium 4.6. Liver function tests are normal. Procalcitonin 1.55. It is notable that his creatinine of 1.66 is relatively near his baseline. Urinalysis without white cells. Micro studies include a Gram stain and culture of the peritoneal fluid that was obtained yesterday. Still no results on that. Blood cultures from yesterday evening in the ED negative. Going back to his February admission, he had multiple negative AFB cultures from pleural and pericardial fluid which were all negative and a negative crypto serology at that time back then as well. IMAGING: Was reviewed on the view screen. It shows a left pleural effusion with possible consolidation. A chest x-ray done one month ago in the Hem/Onc clinic did not show much in the way of left pleural effusion or consolidation so that is new, though the patient tells us that he thinks his x-rays done in [place], [place] last week did show a left pleural effusion, so it is unclear to me how this has changed from the more recent films in [place], but as opposed to a month ago, this is clearly a recurrent left pleural effusion with some possible atelectasis or pneumonia. IMPRESSION: Overall this is an extremely unfortunate patient with progressive adenocarcinoma which started in the lung and now involves the pleural space, pericardial space, peritoneal lining and liver. He is currently troubled by some shortness of breath which at least in part is due to the left pleural effusion but probably more so due to his rapidly reaccumulating ascites. He also has an unexplained eosinophilia which is likely on the basis of a malignancy as it has been fairly persistent. His elevated white count may also be strictly on the basis of malignancy. Overall, I see little here to suggest a pulmonary infection as the patient really has no fevers, chills or sweats, cough, or change in his baseline respiratory status. This chest x-ray certainly could just reflect pleural effusion with compressive atelectasis. RECOMMENDATIONS: 1. I think our goal should be to evaluate this patient and get him out of here as soon as possible so that he can go to the [facility] where possibly he could be offered experimental therapy that might offer him some small chance of improvement. 2. A CT scan of the chest without contrast will be ordered and this may be helpful in terms of distinguishing compressive atelectasis or pneumonia. 3. A MRSA screen of the nose will be done. As soon as that is negative, I would stopped his vanc. 4. Respiratory viral PCR will be ordered. 5. Urine antigens for pneumococcus and Legionella will be ordered. 6. Repeat a serum crypto antigen. 7. A Strongyloides antibody will be checked. Though I think it is highly unlikely, it is possible he could have acquired this on one of his travels to [place]. 8. As part of just to make a complete workup, we will check a Benites C antibody, but as I noted in my consult in February, it is very unlikely as he has had minimal travel to [place] endemic areas and none recently. 9. As soon as we get back the basic part of this lab work, however, I think I would try and discharge the patient, probably on oral levofloxacin or moxifloxacin for a 5-7 day course for possible pneumonia, though I overall do not think it is too likely but the elevated procalcitonin I suppose is of enough concern to justify a short course of quinolone outpatient therapy. Thank you very much for this complex consultation.
--- NOTE | 2016-11-21 11:37 | DRSVH ---
PROCEDURE: CT CHEST WITHOUT CONTRAST ([id number]) INDICATIONS: Left basilar pneumonia versus compressive atelectasis. History of lung cancer. TECHNIQUE: Noncontrast 5 mm thick sections acquired from the pulmonary apices to the posterior costophrenic angl es. 7 mm thick coronal and sagittal MIP reformats were then acquired. For radiation dose reduction, the following was used: automated exposure control, adjustment of mA and/or kV according to patient size. COMPARISON: [facility], CT, CT CHEST ABD PELVIS W CON, 07/09/2016, 15:03. [facility], CT, CT CHEST ABD PELVIS W CON, 09/15/2016, 15:26. [facility], CR, XR CHEST 1VW (PORTABLE), 11/20/2016, 20:59. FINDINGS: Image quality: There is no motion artifact. Lungs and pleura: There is a small left pneumothorax. No associated midline shift. Small bilateral pleural effusions are demonstrated with associated compressive atelectasis in the lung bases. Mild peribronchial consolidation also noted in the left lung base. Within the superior segment of the rig ht lower lobe, there is an irregular related nodule redemonstrated measuring up to 2.3 cm correspondi ng to patient's known lung cancer is similar in size compared to the prior study with adjacent linear opacities which likely reflect sequelae of treatment. Mediastinum: There is a left chest wall Port-A-Cath with the tip extending to the cavoatrial junctio n. Heart size is normal. There is a small pericardial effusion with mild pericardial thickening. N o mediastinal adenopathy by size criteria. Thoracic aorta and central pulmonary arteries are normal in size. Esophagus demonstrates eccentric wall thickening distally with a small hiatal hernia. Bones and chest wall: No suspicious bony lesions. No vertebral body compression fractures. No axil levon or supraclavicular adenopathy by size criteria. Abdomen: Visualized upper abdomen demonstrates an ill-defined hypoattenuating lesion peripherally in the right hepatic lobe which has increased in size from the prior study suspicious for hepatic metas tasis. There is increased ascites within the visualized abdomen as well as increased peritoneal soft tissue infiltration. Findings are consistent with progression of peritoneal carcinomatosis. Need g allbladder is contracted with fluid demonstrated in the gallbladder fossa. IMPRESSION: 1. Small left pneumothorax. 2. Small bilateral pleural effusions with bibasilar compressive atelectasis. Small amount of associ ated peribronchial consolidation in the left lower lobe is also noted which may represent sequela of aspiration or possible pneumonia. Findings discussed with Dr. Aviles on 11/21/16 at 11:20 AM. 3. Irregular spiculated nodule in the right lower lobe corresponding to patient's known lung cancer there is similar in size with adjacent linear opacities suggestive of scarring likely related to sequ elae of treatment. 4. Decrease in size of an irregular region of hypoattenuation in the right hepatic lobe likely repre senting progression of metastatic disease. 5. Progression of peritoneal carcinomatosis . Dictated by: Jeff Dougherty M.D. on 11/21/2016 at 11:21 Approved by: Jeff Dougherty M.D. on 11/21/2016 at 11:35
--- NOTE | 2016-11-21 12:00 | NUR ---
Palliative Care Palliative Care received verbal order from Dr Herrera 11/21/16 to assist with goals of care. Patient admitted 11/21/16. Re (mom) [phone], Kesha Anup (sister) [phone], Palliative Care to follow. May not be able to see patient today due to high caseload. Nancy Song
[2016-11-21] MEDS ORDERED: OLANZapine Zydis ODT 5 mg Tablet PO PRN (14:30)
--- NOTE | 2016-11-21 15:29 | NUR ---
Palliative care note D/A: Dr. Fuentes has seen pt today. She requests that this worker assist with bereavement services for pt dtr's, believed to be about 13 and 17. This worker to check into the [place] [facility]. P: Palliative care to follow. Alka BURK, [facility]
--- NOTE | 2016-11-21 16:21 | NUR ---
Social Work Note: Screen Note/Multidisciplinary Rounds Data& Assessment: EMR reviewed. Pt was discussed in AM rounds, Per MD pt is not medically stable for discharge at this time. Palliative care is following. Esa Santos is a 51 year old male admitted on 11/21/[address] [facility] insurance coverage. Pt lives in [place] with family and is independent at baseline. Pt has dx of lung cancer and was hoping to be able to go to [facility] [place] for a trial once medically ready to discharge from this hospitalization. No MD orders or discharge needs identified at this time. SW to continue to follow if any needs arise. Plan: Anticipated discharge home when medically stable. No MD orders or discharge needs identified at this time. SW to continue to follow if any needs arise. SUZI Fair
--- NOTE | 2016-11-21 17:40 | NUR ---
Pain/Paracentesis Patient a/o x 4, c/o pain x 2, meds given with good effect. Up indep in room to void. Abd distended with positive bowel tones. Patient npo since lunch, MD at bedside doing paracentesis this evening. Plan for d/c post paracentesis.
[2016-11-21] MEDS ORDERED: LEVO750T9 PO (17:41)
[2016-11-21] MEDS ORDERED: MORP15TA PO (17:41)
[2016-11-21] MEDS ORDERED: OLAN2.5T20 PO (17:41)
--- NOTE | 2016-11-21 17:46 | PCM.DIMED ---
Discharge Instructions Date of Service Nov 21, 2016 Dates of Hospitalization Nov 21, 2016 at 01:11 Discharge Diagnosis Discharge Diagnosis Sepsis, Present on admission, improved. Possible healthcare associated pneumonia, POA Abdominal Ascites, POA, stable. Hypotension, POA, stable. Likely acute on chronic renal insufficiency, POA Type I diabetes mellitus, POA Metastatic lung adenocarcinoma, POA Medication Instructions Additional med instructions - Take the Levaquin 750mg every 48 hours until finish (4 pills given)/ - You can take the Olanzapine as needed for the nausea. - Pain control with Morphine as needed. You can get refills from your primary care doctor. Diet Discharge Diet: Low fat, Low Sodium Activity Discharge Activity: No restrictions Call your provider Call your provider for: Fever or Chills, Shortness of breath, Chest pain, Weakness (unilateral) Patient Instructions Patient Instructions - We suspected that you might have pneumonia give your presentations and symptoms. There are some infection markers that were positive and you should take antibiotic for a total of 7 days. You received one day of antibiotic in the hospital, so a prescription for Levaquin is given for 6 days. - It is likely that your symptoms are due to the pleural effusion and ascites. We did the paracentesis twice today and drained approximately 1000mls the first time and 2500mls the second time. - Because you request to be discharged so you can go to the [facility] where you can be offered experimental therapy for the cancer. - Please follow up with your primary care some time this week or next week. You might need to discuss with your doctor about Hospice care and therapeutic paracentesis as outpatient. - Go to the ER if you develop high fever, chills, nausea, vomiting, abdominal pain, bleeding, headache, chest pain, or shortness of breath. Follow-up Provider: Zane Mejia MD Follow-up with PCP in: 1 week Fely Jorgensen DO Nov 21, 2016 16:54
--- NOTE | 2016-11-21 19:55 | PCM.DC.MED ---
Discharge Summary Date of Service Nov 21, 2016 Dates of Hospitalization Date of Hospital Admission Nov 21, 2016 at 01:11 Date of Discharge: Nov 21, 2016 Providers: Admitting Physician: Edvin Flanagan MD Primary Care Physician: Zane Mejia MD Attending Physician: Annie Bush MD Diagnosis at Time of Discharge Diagnosis at Time of Discharge Sepsis, Present on admission, improved. Possible healthcare associated pneumonia, POA Abdominal Ascites, POA, stable. Hypotension, POA, stable. Likely acute on chronic renal insufficiency, POA Type I diabetes mellitus, POA Metastatic lung adenocarcinoma, POA Consultations ID Procedures XRay, CTs & MRIs PROCEDURE: CT CHEST WITHOUT CONTRAST IMPRESSION: 1. Small left pneumothorax. 2. Small bilateral pleural effusions with bibasilar compressive atelectasis. Small amount of associated peribronchial consolidation in the left lower lobe is also noted which may represent sequela of aspiration or possible pneumonia. Findings discussed with Dr. Aviles on 11/21/16 at 11:20 AM. 3. Irregular spiculated nodule in the right lower lobe corresponding to patient 's known lung cancer there is similar in size with adjacent linear opacities suggestive of scarring likely related to sequelae of treatment. 4. Decrease in size of an irregular region of hypoattenuation in the right hepatic lobe likely representing progression of metastatic disease. 5. Progression of peritoneal carcinomatosis . Dictated by: Jeff Dougherty M.D. on 11/21/2016 at 11:21 PROCEDURE: X-RAY CHEST ONE VIEW, PORTABLE IMPRESSION: Findings suspicious for left basilar pneumonia with parapneumonic effusion. Invasive Procedures Paracentesis x 2, one in the ER removed 1L and one by Dr. Bush removed 2.5L. Brief History 51 yo m with history of T1DM, metastatic right lung adenocarcinoma, hypertension , and mild renal insufficiency who presented to the ED for complaints of increasing ascites and abdominal distention x 1 week. Patient baseline has pericardial and pleural effusion and abdominal ascites due to his lung ca. He reports that he was admitted at [facility] in [place], [place] about 1.5 weeks ago for SOB and SVT episodes. He reports also receiving a thoracentesis of his left lung and also a cardiac window for his effusions. Since discharge 3 days ago, he has been feeling somewhat more short of breath, tired, and uncomfortable due to his rapidly increasing ascites. He reports he had a diagnostic paracentesis in [place], but not therapeutic. Prior to that, he did not have a paracentesis except when he was diagnosed with Stage 4 metastatic lung adenocarcinoma on Feb at this hospital. Aside from the abdominal distension and mild SOB, he also has had a chronic cough but no increased sputum production. He has not had any fevers, chills, diarrhea, or dysuria. In the ED, he was afebrile but hypotensive at 82/49, with a pulse of 90 and saturating about 94% on RA. His CBC was remarkable for a white count of 22.7, plt count of 797 His CMP showed mild hyponatremia, but an elevated Cr of 1.94 and lactic acid of 2.1. His procalcitonin was 1.55 He had a portable CXR that showed new left lung consolidation with effusion. A therapeutic paracentesis was performed by ED physician, withdrawing approximately 1Liter of straw colored fluid. Hospital Course 51 yo m with history of T1DM, metastatic right lung adenocarcinoma, hypertension , and mild renal insufficiency who presented to the ED for complaints of increasing ascites and abdominal distention x 1 week. Admitted for therapeutic paracentesis and eval of possible Healthcare acquired pneumonia. Sepsis, Present on admission, resolved. Patient does meet criteria by tachypnea, leukocytosis, and lung as source of infection and hypotension, although he appears stable. He was recently started on metoprolol and flomax at his hospital stay in [place], which may falsely decrease his bp. But in this immunocompromised patient with a new LLL consolidation, some SOB, and mild cough, we will plan to be cautious until we have further evidence otherwise. Will initiate early goal directed therapy. Blood cultures drawn and antibiotics started in the ED on 11/20 His lactic acid was 2.1 on admit, which normalized. Possible healthcare associated pneumonia, POA, active. New LLL consolidation after his hospital stay a week ago. Pt currently stable appearing, only mildly short of breath, which may be chronic, and he reports his cough is improving also. Started on IV Levaquin, Vancomycin, and Zosyn in the ED for empiric therapy. ID was consulted and recommended a 7-day course of Levaquin. Patient was discharged on Levaquin 750mg Q48H. Blood cultures and sputum cultures pending. Procalcitonin of 1.55 on admission Abdominal Ascites, POA Patient's primary reason for admission due to his increased discomfort. His symptoms are improved after 1 Liter was removed by ED physician, and 2.[address] Bush. Ascitic fluid sent for cytology also. Likely secondary to malignancy. Will continue to monitor Patient will likely need additional therapeutic paracentesis as outpatient. Hypotension, POA May be due to disease process or also due to recently started metoprolol and flomax. Will treat with fluids as above and hold Metoprolol and Flomax. If SVTs return, will resume Metoprolol at lower dosage. Placed on Telemetry for Cv monitoring Likely acute on chronic renal insufficiency, POA Bun/Cr of 35/1.94 on admission. Likely multifactorial causes in this complex patient. Will continue to monitor and avoid nephrotoxic agents. If not improving with hydration, consider Nephrology consult Type I diabetes mellitus, POA Patient reports his sugars have been difficult to control with his uneven diet and previous use of steroids. Will check A1c and place on Medium Dose correction scale. Will switch his Toujeo to 20 units of Lantus QHS. Metastatic lung adenocarcinoma, POA As managed by Oncologist Dr. Iniguez, Notify Oncology of admission in the AM Pain management with Tramadol and percocet prn He will consider Hospice care if the study trial in [place] does not go well. Tylenol prn fever/pain Zofran prn n/v Bowel regimen prn constipation CODE STATUS: Full resuscitation Patient is admitted under inpatient status with expected length of stay greater than 2 midnights due to severity of presenting symptoms, risk of adverse event, and complexity of treatment plan. However, because patient finally had an appointment with [place] [facility] at 0700am tomorrow, he would like to get discharged to get to the appointment. Patient was discharged in stable condition. Exam Vital Signs (Last) Date Time Temp Pulse Resp B/P Pulse Ox O2 Delivery O2 Flow Rate FiO2 11/21/16 18:27 36.3 110 18 94/61 93 Room Air 11/21/16 04:26 1.00 Exam General: Well developed chronically ill appearing male who appears in NAD HEENT: Normocephalic, atraumatic. PERRLA Anicteric sclerae, moist conjunctivae. Oropharynx free of erythema and cobble stoning with moist mucosa. Neck: Soft, nontender, trachea midline Cardiovascular: Regular rate and rhythm with soft systolic murmur, [place] on left upper chest Pulmonary: Bibasilar rales L>R. Mild rhonchi noted. Normal respiratory effort, mild cough noted. Abdomen: Soft, moderately distended, normoactive BS present, nontender to palpation, no rashes noted. Extremities: No clubbing, cyanosis, edema noted Skin: Warm, dry, intact Neurological: Cranial nerves grossly intact. No focal weakness, sensation grossly intact, MS grossly intact and equal Psychiatric: Normal mood and affect. Alert and oriented to person, place, and time. Cooperative and pleasant Test 11/20/16 21:11 11/20/16 21:30 11/20/16 23:17 11/20/16 23:23 Prothrombin Time 11.6sec (8.1-12.5) Prothromb Time International Ratio 1.08ratio Activated Partial Thromboplast Time 30.1sec (22.8-33.0) Magnesium Level 1.7mg/dL (1.6-2.6) Total Bilirubin 0.3mg/dL (0.0-1.2) Aspartate Amino Transf (AST/SGOT) 25U/L (0-50) Alanine Aminotransferase (ALT/SGPT) 17U/L (0-44) Alkaline Phosphatase 135U/L (25-150) Troponin T 0.010ug/L (0.0-0.011) Total Protein 6.8g/dL (6.4-8.4) Albumin 2.6g/dL (3.4-5.0) Lipase 9U/L (13-60) Hold Levine Top Tube Received (Received) Hold Protivin Top Tube Received (Received) Urine Legionella pneumophilia Ag Negative (Negative) Urine Color Yellow (YELLOW) Urine Appearance Clear (CLEAR,HAZY) Urine pH 5.5 (5.0-8.0) Urine Specific Reynolds 1.010 (1.003-1.035) Urine Protein Negativemg/dL (NEG,TRACE) Urine Glucose (UA) Negativemg/dL (NEGATIVE) Urine Ketones Negativemg/dL (NEGATIVE) Urine Occult Blood Negative (NEGATIVE) Urine Nitrite Negative (NEGATIVE) Urine Bilirubin Negative (NEGATIVE) Urine Urobilinogen Normalmg/dL (NORMAL) Urine Leukocyte Esterase Negative (NEGATIVE) Urine RBC 0-2/hpf (0-2) Urine WBC 0-5/hpf (0-5) Urine Epithelial Cells Occasional/hpf (NONE-MOD) Urine Crystals None seen (NONE SEEN) Urine Bacteria None/hpf (NONE-FEW) Urine Hyaline Casts 09/29/lpf (NONE) Urine Granular Casts None seen (NONE SEEN) Urine Waxy Casts None seen (NONE SEEN) Urine Red Blood Cell Casts None seen (NONE SEEN) Urine White Blood Cell Casts None seen (NONE SEEN) Urine Mucus Present (None Seen) Urine Trichomonas None seen (NONE SEEN) Urine Yeast None (NONE SEEN) Urinalysis Comment None Urine Culture Reflexed Not indicated Test 11/21/16 07:25 11/21/16 10:19 White Blood Count 19.3th/mm3 (3.8-10.1) Red Blood Count 3.41mil/mm3 (4.40-5.80) Hemoglobin 9.2g/dL (13.8-17.2) Hematocrit 28.9% (41.0-50.0) Mean Corpuscular Volume 84.8fL (81-100) Mean Corpuscular Hemoglobin 27.0pg (27.0-35.0) Mean Corpuscular Hemoglobin Concent 31.8% (32.0-37.0) Red Cell Distribution Width 15.3% (12.3-15.4) Platelet Count 594bil/L (150-400) Neutrophils (%) (Auto) 59% (40-74) Lymphocytes (%) (Auto) 7% (14-46) Monocytes (%) (Auto) 9% (4-12) Eosinophils (%) (Auto) 22% (0-5) Basophils (%) (Auto) 0% (0-3) Band Neutrophils % 3% (1-5) Sodium Level 130mEq/L (134-144) Potassium Level 4.6mEq/L (3.5-5.2) Chloride Level 95mEq/L (97-108) Carbon Dioxide Level 23mmol/L (18-29) Blood Urea Nitrogen 36mg/dL (6-24) Creatinine 1.66mg/dL (0.76-1.27) Estimat Glomerular Filtration Rate 46mL/min (>59) Glucose Level 319mg/dL (60-99) Lactic Acid Level 1.2mmol/L (0.4-2.0) Calcium Level 7.8mg/dL (8.5-10.1) Procalcitonin 1.68ng/mL (0.00-0.08) Microbiology Results Blood culture Pending Discharge Medications Discharge Medications Acetaminophen (Acetaminophen) 500 Mg Tablet 1,000 MG PO HS (Reported) TAKE WITH TYLENOL Aspirin (Aspirin) 81 Mg Tablet 81 MG PO QAM (Reported) Bimatoprost (Lumigan) 45 Drop/2.5 Ml Ophsoln 1 DROP BOTH_EYES HS (Reported) Biotin (Biotin) 10,000 Mcg Capsule 10,000 MCG PO QAM (Reported) Calcium Carbonate (Tums) 500 Mg Tab.chew 500 MG PO TIDWM (Reported) Cetirizine HCl (Zyrtec) 10 Mg Capsule 20 MG PO HS (Reported) Cholecalciferol (Vitamin D3) (Vitamin D3) 2,000 Unit Capsule 2,000 UNIT PO QAM ( Reported) Folic Acid (Folic Acid) 1 Mg Tablet 1 MG PO QAM (Reported) Insulin Aspart (NovoLOG U100 Insulin Vial) 100 U/Ml U 1-20 UNIT SUBQ DIRECTED (Reported) CARB COUNTS 1 UNIT/3 GRAMS CARBOHYDRATES AND CORRECTION FACTOR OF 1 UNIT FOR EVERY 10 POINTS ABOVE 150 MG/DL BLOOD SUGAR IS ABOVE. Insulin Glargine,Hum.rec.anlog (Toujeo Solostar) 300 Unit/Ml (1.5 Ml) Insuln.pen 20 UNITS SUBQ HS (Reported) Levofloxacin (Levaquin) 750 Mg Tablet 750 MG PO Q48H Prescribed by: ANNIE BUSH MD Metoprolol Tartrate (Metoprolol Tartrate) 25 Mg Tablet 25 MG PO BID (Reported) Morphine Sulfate (Morphine Sulfate) 15 Mg Tablet 15 MG PO Q4H Prescribed by: ANNIE BUSH MD Simvastatin (Simvastatin) 80 Mg Tablet 80 MG PO QAM (Reported) Tamsulosin (Flomax) 0.4 Mg Capsule 0.4 MG PO HS (Reported) Tramadol ER (Tramadol ER) 100 Mg Tab.er.24h 100 MG PO HS (Reported) TAKE WITH TYLENOL Turmeric Root Extract (Turmeric) 500 Mg Capsule 500 MG PO QAM (Reported) As needed Hydroxyzine HCl (HydrOXYzine Hcl) 50 Mg Tablet 50 MG PO TID PRN PRN For Itching (Reported) Olanzapine (Olanzapine) 2.5 Mg Tablet 2.5 MG PO DAILY PRN PRN For Nausea Prescribed by: ANNIE BUSH MD Ondansetron (Ondansetron) 8 Mg Tablet 8 MG PO Q8H PRN PRN For Nausea/Vomiting ( Reported) Promethazine (Promethazine) 25 Mg Tablet 25 MG PO Q8H PRN PRN For Nausea/ Vomiting (Reported) Tramadol (Tramadol) 50 Mg Tablet 50 MG PO Q8H PRN PRN For Pain (Reported) Additional med instructions - Take the Levaquin 750mg every 48 hours until finish (4 pills given)/ - You can take the Olanzapine as needed for the nausea. - Pain control with Morphine as needed. You can get refills from your primary care doctor. Followup Plan Disposition: Home Follow-up plan Patient will think about Hospice care after his visit to [facility] tomorrow. Discharge Diet: Low fat, Low Sodium Discharge Activity: No restrictions Patient Instructions - We suspected that you might have pneumonia give your presentations and symptoms. There are some infection markers that were positive and you should take antibiotic for a total of 7 days. You received one day of antibiotic in the hospital, so a prescription for Levaquin is given for 6 days. - It is likely that your symptoms are due to the pleural effusion and ascites. We did the paracentesis twice today and drained approximately 1000mls the first time and 2500mls the second time. - Because you request to be discharged so you can go to the [facility] where you can be offered experimental therapy for the cancer. - Please follow up with your primary care some time this week or next week. You might need to discuss with your doctor about Hospice care and therapeutic paracentesis as outpatient. - Go to the ER if you develop high fever, chills, nausea, vomiting, abdominal pain, bleeding, headache, chest pain, or shortness of breath. Follow-up Provider: Zane Mejia MD Follow-up with PCP in: 1 week copies to: Zane Mejia MD, Ngochanh H DO Nov 21, 2016 18:35
--- NOTE | 2016-11-21 20:14 | PCM.PROC ---
Procedure Note Date of Service: Nov 21, 2016 Pre Procedure Diagnosis: PROCEDURE: Therapeutic paracentesis INDICATION: to decrease abdominal discomfort PROCEDURE [employer]: CONSENT: Informed consent was obtained after risks and benefits were explained at length. PROCEDURE SUMMARY: A time-out was performed. The area of the LLQ abdomen was prepped and draped in a sterile fashion using chlorhexidine scrub. 1% lidocaine was used to numb the region. The skin was incised 1.5 mm using a 10 blade scalpel. The paracentesis catheter was inserted and advanced with negative pressure under ultrasound guidance. Ultrasound images were permanently documented. No blood was aspirated. Clear yellow fluid was retrieved and collected. The catheter was then connected to the vaccutainer and 2 liters of additional ascitic fluid were drained. The catheter was removed and no leaking was noted. The patient tolerated the procedure well without any immediate complications. Dr. Jorgensen was present during the procedure. ESTIMATED BLOOD LOSS:5cc COMPLICATIONS: none Annie Herrera MD Nov 21, 2016 20:13
--- NOTE | 2016-11-21 20:32 | NUR ---
Discharge Home with brother in law at 2020. Alert and oriented. Up with standby assist to wheelchair. Denies dizziness or pain. States his pain is much improved since paracentesis earlier. Anxious to get home tonight as he is due to start clinical trial at cancer care center in [place] at 7 Am tomorrow. MD called with concerns about elevated heart rate. Has been around 110-115 since this afternoon. Pt explains he hasn't taken Toprol since admit here and that he is chronically tachycardic. Paracentesis site with minimal serosanguinous drainage. Kei 93% on room air. Pt denies shortness of breath or other adverse symptoms. Plan to follow up with PCP and with cancer care in [place]. Discussed discharge instructions, and prescriptions and belongings sent with patient.
[2016-11-21] MEDS ORDERED: Levofloxacin 750 mg/150 mL D5W IV SCH (21:00)
[2016-11-21] MEDS ORDERED: Insulin GLARgine 100 Unit/mL Syringe SUBQ SCH (21:00)
--- NOTE | 2016-11-21 21:43 | PCM.CONPAL ---
Date of Service Nov 21, 2016 Date of Hospital Admission: Nov 21, 2016 at 01:11 Date of Palliative Consult: Nov 21, 2016 Requesting Provider: Annie Herrera MD Reason Palliative Care Consult: Pain, Goals of Care Discussion Hospital Unit @time of consult: Progressive Care Palliative Care Recommendation Summary of palliative recommendations: -Symptom management (Pain/other)Pain-- needs some meds at home for this and dyspnea-- suggested MSIR 15 mg Q2 HPRN Nausea-- he would like tap-- challenge with US-before discharge Also reviewed use of olanzapine or haloperidol prn -dosing reviewed Grieving- will give info on [facility] and hospice. EOL--he is interested in hospice at his home if [facility] does not have treatment option. Depression-- offered support. He has not had success with meds -DPOA/Advanced Directives/POLST-remains full code for now -Family/emotional support-has good support -Spiritual support-involved in his baptism Additional Medical Diagnoses with primary management by Hospitalist team include : Small pneumothorax-may be residual from chest tube-- will need follow up Arrangements completed for discharge so he can attend his consultation at [facility] 7AM tomorrow. Follow up offered as OP Problems: Disposition home Resuscitation Status Resuscitation Status: CPR: Attempt Resuscitation . Pain: Moderate Symptom management: Nausea, Dyspnea Pt History History of Present Illness 51 yo m with history of T1DM, metastatic right lung adenocarcinoma, hypertension , and mild renal insufficiency who presented to the ED for complaints of increasing ascites and abdominal distention x 1 week. Better with just 1 L removed but feels it has built back up in 24 hours. c/o weakness, orthostatic hypoTN, nausea, occ vomiting, hiccups which causes pain and N/V In the ED, he was afebrile but hypotensive at 82/49, with a pulse of 90 and saturating about 94% on RA. His CBC was remarkable for a white count of 22.7, plt count of 797 His CMP showed mild hyponatremia, but an elevated Cr of 1.94 and lactic acid of 2.1. His procalcitonin was 1.55 He had a portable CXR that showed new left lung consolidation with effusion. A therapeutic paracentesis was performed by ED physician, withdrawing approximately 1Liter of straw colored fluid. Past Medical History Significant PMH Noted: PMH 1. Type 1 diabetes. 2. Metastatic Lung Adenocarcinoma-with malignant ascites, pleural effusions and pericardial effusions 3. Hypertension. 4. GE reflux disease. 5. Diabetic retinopathy with prior bilateral vitrectomy. 6. Hyperlipidemia. Surgical History Carpal tunnel release Varicocele repair s/p chest tube and pericardial window Family History Family history of diabetes Social History Occupation: Nurse practitioner Hx Alcohol Use: Yes (rare) Hx Substance Use: No Hx Tobacco Use: No--never . Shares custody of his 2 daughters- age 13 and 17 Social History Social Support: his family-parents, friends. Very distant relationship with his ex- Living Situation: lives alone with shared custody of daughters bought house few blocks away from his ex- Spiritual Support Spiritual Support has strong baptism community Responsive Patient Symptoms Pain (maximium): Moderate Tiredness/Fatigue: Moderate Nausea: Moderate (relieved with tap) Depression: Moderate (no benefit from antidepressants) Anorexia: Moderate Shortness of Breath: Moderate Constipation has fair control- can have occ diarrhea Palliative Performance Scale Performance Scale: 80% Allergy Allergies Reviewed: Yes Medications Current Medications: Current Medications Fentanyl Citrate 50 mcg Q15MIN PRN IVPUSH Last administered on 11/21/16 00:08 ; Admin Dose 50 MCG; Start 11/20/16 at 22:10; Stop 11/21/16 at 03:06; Status DC Heparin Sodium (Porcine) 5,000 unit Q8 SUBQ Last administered on 11/21/16 08:45 ; Admin Dose 5,000 UNIT; Start 11/21/16 at 08:30; Stop 11/21/16 at 21:04; Status DC Albuterol 2.5 mg Q2H PRN NEB; Start 11/21/16 at 01:10; Stop 11/21/16 at 21:04; Status DC Albuterol/ Ipratropium 3 ml Q2 PRN NEB; Start 11/21/16 at 01:10; Stop 11/21/16 at 21:04; Status DC Al Hydrox/Mg Hydrox/Simethicone 30 ml Q6H PRN PO; Start 11/21/16 at 01:10; Stop 11/21/16 at 21:04; Status DC Senna 17.2 mg BID PRN PO; Start 11/21/16 at 01:10; Stop 11/21/16 at 21:04; Status DC Polyethylene Glycol 17 gm DAILY PRN PO; Start 11/21/16 at 01:10; Stop 11/21/16 at 21:04; Status DC Temazepam 15 mg HS PRN PO; Start 11/21/16 at 01:10; Stop 11/21/16 at 21:04; Status DC Acetaminophen 650 mg Q4H PRN PO; Start 11/21/16 at 01:10; Stop 11/21/16 at 21: 04; Status DC Acetaminophen/ Hydrocodone Bitart 1-2 TABS Q4H PRN PO; Start 11/21/16 at 01:10 ; Stop 11/21/16 at 21:04; Status DC Levofloxacin/ Dextrose/Premix 150 ml @ 100 mls/hr Q48H IV; Start 11/21/16 at 21 :00; Stop 11/21/16 at 21:04; Status DC Insulin Glargine 20 unit HS SUBQ; Start 11/21/16 at 21:00; Stop 11/21/16 at 21: 04; Status DC Insulin Human Lispro Nutritional Dose to be given pr... [facility] SUBQ Last administered on 11/21/16 08:36; Admin Dose 3 UNIT; Start 11/21/16 at 08:00; Stop 11/21/16 at 11:46; Status DC Aspirin 81 mg DAILY PO Last administered on 11/21/16 08:34; Admin Dose 81 MG; Start 11/21/16 at 08:30; Stop 11/21/16 at 21:04; Status DC Latanoprost 1 drop HS BOTH_EYES; Start 11/21/16 at 21:00; Stop 11/21/16 at 21:04 ; Status DC Calcium Carbonate 500 mg TIDWM PO Last administered on 11/21/16 08:34; Admin Dose 500 MG; Start 11/21/16 at 08:00; Stop 11/21/16 at 21:04; Status DC Folic Acid 1 mg DAILY PO Last administered on 11/21/16 08:34; Admin Dose 1 MG; Start 11/21/16 at 08:30; Stop 11/21/16 at 21:04; Status DC Non-Formulary Medication 10,000 mcg QAM PO; Start 11/21/16 at 01:55; Status UNV Cetirizine HCl 20 mg HS PO; Start 11/21/16 at 21:00; Stop 11/21/16 at 21:04; Status DC Cholecalciferol 2,000 unit DAILY PO Last administered on 11/21/16 08:34; Admin Dose 2,000 UNIT; Start 11/21/16 at 08:30; Stop 11/21/16 at 21:04; Status DC Hydroxyzine Pamoate 50 mg TID PRN PO; Start 11/21/16 at 01:55; Stop 11/21/16 at 21:04; Status DC Atorvastatin Calcium 40 mg DAILY PO Last administered on 11/21/16 08:35; Admin Dose 40 MG; Start 11/21/16 at 08:30; Stop 11/21/16 at 21:04; Status DC Patient Own Medication 1 ea HS PO; Start 11/21/16 at 08:30; Status Cancel Non-Formulary Medication 500 mg 500 mg QAM PO; Start 11/21/16 at 01:55; Status UNV Dextrose/Water 250 ml @ 750 mls/hr PRN PRN IV; Start 11/21/16 at 03:10; Stop 11/21/16 at 21:04; Status DC Ondansetron HCl 4 mg Q4H PRN IVPUSH Last administered on 11/21/16 17:52; Admin Dose 4 MG; Start 11/21/16 at 03:10; Stop 11/21/16 at 21:04; Status DC Tramadol HCl 100 mg Q6H PRN PO; Start 11/21/16 at 03:10; Stop 11/21/16 at 21:04 ; Status DC Morphine Sulfate 2 mg Q4H PRN IVPUSH Last administered on 11/21/16 17:17; Admin Dose 2 MG; Start 11/21/16 at 03:15; Stop 11/21/16 at 21:04; Status DC Insulin Human Lispro Nutritional Dose to be given pr... [facility] SUBQ Last administered on 11/21/16 14:07; Admin Dose 7 UNIT; Start 11/21/16 at 12:00; Stop 11/21/16 at 21:04; Status DC Olanzapine 2.5 mg Q6 PRN PO; Start 11/21/16 at 14:30; Stop 11/21/16 at 21:04; Status DC Scheduled Acetaminophen (Acetaminophen) 500 Mg Tablet 1,000 MG PO HS TAKE WITH TYLENOL Aspirin (Aspirin) 81 Mg Tablet 81 MG PO QAM Bimatoprost (Lumigan) 45 Drop/2.5 Ml Ophsoln 1 DROP BOTH_EYES HS Biotin (Biotin) 10,000 Mcg Capsule 10,000 MCG PO QAM Calcium Carbonate (Tums) 500 Mg Tab.chew 500 MG PO TIDWM Cetirizine HCl (Zyrtec) 10 Mg Capsule 20 MG PO HS Cholecalciferol (Vitamin D3) (Vitamin D3) 2,000 Unit Capsule 2,000 UNIT PO QAM Folic Acid (Folic Acid) 1 Mg Tablet 1 MG PO QAM Insulin Aspart (NovoLOG U100 Insulin Vial) 100 U/Ml U 1-20 UNIT SUBQ DIRECTED CARB COUNTS 1 UNIT/3 GRAMS CARBOHYDRATES AND CORRECTION FACTOR OF 1 UNIT FOR EVERY 10 POINTS ABOVE 150 MG/DL BLOOD SUGAR IS ABOVE. Insulin Glargine,Hum.rec.anlog (Toujeo Solostar) 300 Unit/Ml (1.5 Ml) Insuln.pen 20 UNITS SUBQ HS Levofloxacin (Levaquin) 750 Mg Tablet 750 MG PO Q48H Metoprolol Tartrate (Metoprolol Tartrate) 25 Mg Tablet 25 MG PO BID Morphine Sulfate (Morphine Sulfate) 15 Mg Tablet 15 MG PO Q4H Simvastatin (Simvastatin) 80 Mg Tablet 80 MG PO QAM Tamsulosin (Flomax) 0.4 Mg Capsule 0.4 MG PO HS Tramadol ER (Tramadol ER) 100 Mg Tab.er.24h 100 MG PO HS TAKE WITH TYLENOL Turmeric Root Extract (Turmeric) 500 Mg Capsule 500 MG PO QAM Scheduled PRN Hydroxyzine HCl (HydrOXYzine Hcl) 50 Mg Tablet 50 MG PO TID PRN PRN For Itching Olanzapine (Olanzapine) 2.5 Mg Tablet 2.5 MG PO DAILY PRN PRN For Nausea Ondansetron (Ondansetron) 8 Mg Tablet 8 MG PO Q8H PRN PRN For Nausea/Vomiting Promethazine (Promethazine) 25 Mg Tablet 25 MG PO Q8H PRN PRN For Nausea/ Vomiting Tramadol (Tramadol) 50 Mg Tablet 50 MG PO Q8H PRN PRN For Pain Objective Findings Exam Vital Sign - Last Date Time Temp Pulse Resp B/P Pulse Ox O2 Delivery O2 Flow Rate FiO2 11/21/16 19:54 114 16 97/64 93 Room Air 11/21/16 18:27 36.3 11/21/16 04:26 1.00 Intake and Output 11/20/16 11/20/16 11/21/16 Cumulative From/Thru 15:00 23:00 07:00 11/20/16 20:32 - 11/21/16 06:26 Intake Total 908 ml 908 ml Balance 908 ml 908 ml IV Total 908 ml 908 ml General: Alert/Oriented x3, Moderate distress, Other HEENT: PERRLA, EOMI, Scleral Anicteric Heart: Tachycardia Lungs: Diminished Abdomen: Distended Neuro: Cranial Nerve 3-12 Intact, Other (gait normal, mentation normal, frequently tearful jose when discussing his daughters) Extremities: No Edema Lab/Diagnostics Lab and Imaging results reviewed in detail in EMR. CT noting small pneumothorax, small elisabeth effusions, RLL nodule c/w lung CA, progression of peritoneal carcinomatosis Patient/Family Conference Members Present Family Members Present patient only--daughters came back later Medical Team Members Present? [facility] Discussion/Goals of Care Palliative Care counselled: He has a goal to get to [facility] for possible DNA target tx. He gets appt while here He recognizes explosive pattern of his malignancy. He asks for resource to help him around his daughters-reviewed and consider [facility]. 1 daughter has seen a counselor in past. Pain/dyspnea management Time spent Total time 65 minutes; >50% face to face with patient and/or family, providing counselling regarding plans and recommendations, and in care coordination with his/her medical teams. Involved in chart review, coordination of care, review of sx managment options with patient I also spent an additional [ ] minutes counseling for advanced care planning with the patient/the patients family/the surrogate decision maker. copies to: Tho Iniguez MD, Deborah A MD Nov 21, 2016 21:43
[2016-11-22 10:13] LABS: Cryptococcal Ag Negative (Negative)
--- NOTE | 2016-11-23 09:17 | NUR ---
Palliative care note (late note for 11/22/16) D/A: This worker has left message for staff member in charge of [facility]. Have asked for information regarding services for adolescents and ages of different groups. Have also asked if sibling groups can be kept together if close to age of older group. Pt down at [facility]. Have recommended to Dr. Fuentes, who is in touch with pt today, that he ask about bereavement services for children/youth that may be in [facility] or closer to pt than [place]. P: Palliative care to follow. Alka BURK, CCM
== END 2016-11-21 20:20 | disposition home or self-care (01) | DRG 180 ==
LOC: SED 20:04 → PCC 11-21 01:11
PROVIDERS: ADMIT Internal Medicine; ATTEND Internal Medicine
PROC: 0W9G3ZX Drainage of Peritoneal Cavity, Percutaneous Approach, Diagnostic (ICD-10-PCS; principal; 2016-11-20)
PROC: 0W9G3ZZ Drainage of Peritoneal Cavity, Percutaneous Approach (ICD-10-PCS; 2016-11-21)
DX: C34.91 Malignant neoplasm of unspecified part of right bronchus or lung (principal); A41.9 Sepsis, unspecified organism; J18.9 Pneumonia, unspecified organism; R18.0 Malignant ascites; Y95 Nosocomial condition; I95.9 Hypotension, unspecified; E10.9 Type 1 diabetes mellitus without complications; Z79.4 Long term (current) use of insulin; N28.9 Disorder of kidney and ureter, unspecified; N18.9 Chronic kidney disease, unspecified

== ENCOUNTER 2016-12-04 06:23 | Emergency (ER) | payer OTHER ==
[~2016-12-04 06:23] MED LIST changes: +ACET-171 PO; +CALC500T9 PO; -ESOM40CA41 PO; +HYDR50TA76 PO; +LEVO750T9 PO; -LISI1TAB9 PO; +METO25TA6 PO; +MORP15TA PO; +OLAN2.5T20 PO; +PROM25TA14 PO; +TAMS0.4C98 PO; +TRAM100T2 PO; +TRAM50TA2 PO; -TUMERIC PO; +TURM500C3 PO
--- NOTE | 2016-12-04 06:24 | ED.REPORT ---
HPI-General Illness Date of Service Dec 04, 2016 ED Provider: Trudi Trenton Patient is a 51 year old male with a hx of HTN, GERD, DM, and stage 4 lung cancer with mets who presents to the ED via EMS for resolved tachycardia with a rate of 220. Associated symptoms include weakness, dizziness, vomiting (which he attributes to cancer treatment), and heart burn. He denies chest pain, SOB, fevers, or any other symptoms. He received adenosine en route. He has been on a new study drug for cancer for the past week and a half. He recently had a pericardiac window recently during which he went into SVT twice. He has struggled with tachycardia and hypotension since his cancer diagnosis in February. He takes a baby aspirin and simvastatin daily. Patient was admitted for pneumonia 13 days ago. Nursing Notes Stated Complaint: RESOLVED TACHYCARDIA Nursing Notes Reviewed: Yes Allergies: Coded Allergies: TAPE (Unverified Allergy, Severe, rash, skin break, 03/01/16) latex (Verified Allergy, Unknown, 02/22/16) Scheduled Acetaminophen (Acetaminophen) 500 Mg Tablet 1,000 MG PO HS TAKE WITH TYLENOL Aspirin (Aspirin) 81 Mg Tablet 81 MG PO QAM Bimatoprost (Lumigan) 45 Drop/2.5 Ml Ophsoln 1 DROP BOTH_EYES HS Biotin (Biotin) 10,000 Mcg Capsule 10,000 MCG PO QAM Calcium Carbonate (Tums) 500 Mg Tab.chew 500 MG PO TIDWM Cetirizine HCl (Zyrtec) 10 Mg Capsule 20 MG PO HS Cholecalciferol (Vitamin D3) (Vitamin D3) 2,000 Unit Capsule 2,000 UNIT PO QAM Folic Acid (Folic Acid) 1 Mg Tablet 1 MG PO QAM Insulin Aspart (NovoLOG U100 Insulin Vial) 100 U/Ml U 1-20 UNIT SUBQ DIRECTED CARB COUNTS 1 UNIT/3 GRAMS CARBOHYDRATES AND CORRECTION FACTOR OF 1 UNIT FOR EVERY 10 POINTS ABOVE 150 MG/DL BLOOD SUGAR IS ABOVE. Insulin Glargine,Hum.rec.anlog (Toujyoti Solostar) 300 Unit/Ml (1.5 Ml) Insuln.pen 20 UNITS SUBQ HS Levofloxacin (Levaquin) 750 Mg Tablet 750 MG PO Q48H Metoprolol Tartrate (Metoprolol Tartrate) 25 Mg Tablet 25 MG PO BID Morphine Sulfate (Morphine Sulfate) 15 Mg Tablet 15 MG PO Q4H Ranitidine (Ranitidine) 150 Mg Capsule 150 MG PO BID Simvastatin (Simvastatin) 80 Mg Tablet 80 MG PO QAM Tamsulosin (Flomax) 0.4 Mg Capsule 0.4 MG PO HS Tramadol ER (Tramadol ER) 100 Mg Tab.er.24h 100 MG PO HS TAKE WITH TYLENOL Turmeric Root Extract (Turmeric) 500 Mg Capsule 500 MG PO QAM Scheduled PRN Hydroxyzine HCl (HydrOXYzine Hcl) 50 Mg Tablet 50 MG PO TID PRN PRN For Itching Olanzapine (Olanzapine) 2.5 Mg Tablet 2.5 MG PO DAILY PRN PRN For Nausea Ondansetron (Ondansetron) 8 Mg Tablet 8 MG PO Q8H PRN PRN For Nausea/Vomiting Promethazine (Promethazine) 25 Mg Tablet 25 MG PO Q8H PRN PRN For Nausea/ Vomiting Tramadol (Tramadol) 50 Mg Tablet 50 MG PO Q8H PRN PRN For Pain General Time Seen by MD: 06:32 Chief Complaint Other (Tachycardia ) Hx Obtained From: Patient, EMS Arrived By: Ambulance Sudden in Onset?: Yes Recent Healthcare: Recent doctor visit, Recent hospitalization Similar Sx Previous: Yes Past Medical History Past Medical History Stage 4 metastatic lung cancer moderate renal insufficiency hyperkalemia Diabetes mellitus Hypertension GERD Past Surgical History Orthopedic surgeries Family History Noncontributory Smoking History Former Smoker Social History Alcohol Use: "Social" Drug Use: Denies drug use Other Social History: Good social support, Local resident Ambulatory Status Independent Review of Systems +tachycardia, heart burn Full Review of Systems Constitutional: Reports: Weakness - generalized, Denies: Fever Respiratory: Denies: Shortness of breath Cardiovascular: Denies: Chest pain GI: Reports: Vomiting Neurologic: Reports: Dizziness Complete sys rev & neg: except as marked. Physical Exam Vital Signs Vital Signs Date Time Temp Pulse Resp B/P Pulse Ox O2 Delivery O2 Flow Rate FiO2 12/04/16 07:05 98 18 98/68 100 12/04/16 06:34 114 20 104/70 100 Room Air Initial VS: Reviewed, Vital signs abnormal Head / Eyes: Atraumatic, Normocephalic Neck: Full range of motion Abdomen / GI: Soft, Non-tender Skin: Warm, Dry Neurologic: Alert, Oriented, Nonfocal Psychiatric: Mood/affect normal, Behavior normal, Normal thought content General/Constitutional: Awake, Alert Appearance / Presentation: Positive: Frail, Pale Thin Respiratory / Chest: Atraumatic Diminished in L lung base Heart Rate / Rhythm: Positive: Tachycardia Interpretation & Diagnostics Lab Results Interpretation Result Diagram: 12/04/16 0642 12/04/16 0642 Test 12/04/16 06:42 White Blood Count 12.1th/mm3 (3.8-10.1) Red Blood Count 5.47mil/mm3 (4.40-5.80) Hemoglobin 14.3g/dL (13.8-17.2) Hematocrit 44.2% (41.0-50.0) Mean Corpuscular Volume 80.8fL (81-100) Mean Corpuscular Hemoglobin 26.1pg (27.0-35.0) Mean Corpuscular Hemoglobin Concent 32.4% (32.0-37.0) Red Cell Distribution Width 15.4% (12.3-15.4) Platelet Count 614bil/L (150-400) Neutrophils (%) (Auto) 54.7% (40-74) Lymphocytes (%) (Auto) 20.5% (14-46) Monocytes (%) (Auto) 4.8% (4-12) Eosinophils (%) (Auto) 19.5% (0-5) Basophils (%) (Auto) 0.3% (0-3) Prothrombin Time 11.2sec (8.1-12.5) Prothromb Time International Ratio 1.05ratio D-Dimer 3.32mg/L FEU (<0.50) Sodium Level 138mEq/L (134-144) Potassium Level 4.2mEq/L (3.5-5.2) Chloride Level 97mEq/L (97-108) Carbon Dioxide Level 23mmol/L (18-29) Blood Urea Nitrogen 16mg/dL (6-24) Creatinine 1.18mg/dL (0.76-1.27) Estimat Glomerular Filtration Rate 69mL/min (>59) Glucose Level 46mg/dL (60-99) Calcium Level 9.1mg/dL (8.5-10.1) Magnesium Level 1.9mg/dL (1.6-2.6) Total Bilirubin 0.2mg/dL (0.0-1.2) Aspartate Amino Transf (AST/SGOT) 77U/L (0-50) Alanine Aminotransferase (ALT/SGPT) 58U/L (0-44) Alkaline Phosphatase 518U/L (25-150) Troponin T 0.010ug/L (0.0-0.011) Pro-B-Type Natriuretic Peptide 366.5pg/mL (0-121) Total Protein 8.0g/dL (6.4-8.4) Albumin 2.6g/dL (3.4-5.0) Thyroid Stimulating Hormone (TSH) 13.580uIU/mL (0.450-4.500) Thyroxine (T4) 5.6ug/dL (4.7-13.3) ECG Interpretation ECG Interpretation: Sinus tachycardia with a rate of 104 diffuse T-wave inversions Similar to prior Time: 06:46 Interpreted by: ED physician X-Ray Chest Interpretation Chest Xray Interpretation: IMPRESSION: Within an area of the left midlung superimposed upon by the Port-A-Cath port there is a radiodensity that could represent a mass lesion measuring up to 3.2 cm. Subpulmonic left effusion and mild stranding at the left lung base is also present in this general area and it is possible that the abnormality represents a pneumonia not present 10/16/16 but present 11/20/16 by plain film. Dictated by: Keon Tinajero M.D. on 12/04/2016 at 9:22 Approved by: Keon Tinajero M.D. on 12/04/2016 at 9:24 View: Portable, 1 view Interpretation / Wet Read by: Interpret - Radiologist CT Chest Interpretation IMPRESSION: 1. No evidence for pulmonary embolism. 2. No evidence for any dissection of the aorta or great vessels. 3. Decrease in size of the right lung mass probably lower lobe. 4. Increase in size of left pleural effusion. Probable small pericardial effusion present. Dictated by: Omkar Rees M.D. on 12/04/2016 at 9:15 Approved by: Omkar Rees M.D. on 12/04/2016 at 9:51 Study type: CT pulm angiogram Interpretation / Wet Read by: Interpret - Radiologist Re-Eval/Medical Decision Med Decision/Clinical Course Ultimately patient has SVT, laboratory evaluation was done given his complex medical history and a CT was performed to exclude pulmonary embolism. He does have a small pericardial effusion without evidence clinically of tamponade. His TSH is elevated with a normal T4. He has liver abnormalities which have been present to a lesser degree previously without right upper quadrant pain. Ultimately he will be discharged. He will be started on ranitidine. He is recommended to resume his metoprolol. His oncologist has been contacted who agrees with discharge planning. Return and follow-up precautions given. Time of Eval: 07:59 Re-Evaluation/Progress Note: Rechecked patient who is doing well. Time of Eval: 10:03 Re-Evaluation/Progress Note: Discussed plan for discharge. Patient understands and agrees with plan. All questions addressed at this time. Consultation : Call Returned at: 08:40 Note: BOBBY Will, observe lab abnormalities, ok to continue study medication, will monitor tsh, restart metoprolol. will see in clinic this week Counseled Regarding: Diagnosis, Lab results, Need for follow-up, When/why to return to ED Discharge & Departure Primary Impression: SVT (supraventricular tachycardia) Additional Impressions: Hypoglycemia Dyspepsia Disposition: Home Discharge Condition All VS Reviewed: Yes Condition: Improved Additional Instructions: Thank you for entrusting us with your care. You had an episode of SVT that was treated with adenosine. Follow up with your oncologist about your liver and thyroid function. Continue to titrate down you insulin to avoid hypoglycemic episodes. Take ranitidine as prescribed for your dyspepsia. Return to the emergency department or call 911 for any new or worsening symptoms. Referrals: Zane Mejia MD (PCP) Geovanna Attestation Portions of this note were transcribed by Jeb Merino. I, Dr. Brush personally performed the history, physical exam and medical decision-making; I reviewed and confirmed the accuracy of the information in the transcribed note. Signed by: Geovanna Vigil, 12/04/16 at 1015 copies to: Zane Mejia MD, Timothy S DO Dec 04, 2016 06:24 JEB MERINO Dec 04, 2016 06:41
[2016-12-04 06:34] VITALS: BP 104/70; PULSE 114; RESP 20; O2SAT 100
[2016-12-04] MEDS ORDERED: LidocaineVisc 2%:Antacid 1:1 10 mL Syringe PO ONE (06:40)
[2016-12-04] MEDS ORDERED: Ondansetron 2 mg/mL 2 mL Inj IVPUSH ONE (06:40)
[2016-12-04 07:05] VITALS: BP 98/68; PULSE 98; RESP 18; O2SAT 100
[2016-12-04] MEDS ORDERED: Dextrose 5% 0.9% NaCl 1,000 ML IV SCH (07:10)
[2016-12-04 07:11] LABS: D-Dimer 3.32 mg/L FEU (<0.50); INR 1.05 ratio
[2016-12-04 07:30] LABS: TROPONIN T 0.01 ug/L (0.0-0.011)
[2016-12-04 07:41] LABS: Magnesium 1.9 mg/dL (1.6-2.6)
[2016-12-04 07:59] LABS: Mean Corpuscular Volume 80.8 fL (81-100)
[2016-12-04 08:00] LABS: BASOPHILS % (AUTO) 0.3 % (0-3); EOSINOPHILS % (AUTO) 19.5 % (0-5); MONOCYTES % (AUTO) 4.8 % (4-12); Mean Corpuscular Hemoglobin 26.1 pg (27.0-35.0); NEUTROPHILS % (AUTO) 54.7 % (40-74); Platelet Count 614 bil/L (150-400)
--- NOTE | 2016-12-04 09:26 | DRSVH ---
PROCEDURE: X-RAY CHEST ONE VIEW, PORTABLE ([id number]) INDICATIONS: recent palpitations, h/o cancer TECHNIQUE: One view of the chest was acquired. COMPARISON: [facility], CR, XR CHEST 1VW (PORTABLE), 11/20/2016, 20:59. [facility], CR, XR CHEST 2VW, 10/16/2016, 14:27. FINDINGS: Surgical changes and devices: Port-A-Cath from left sided approach has not changed with tip in the mi ddle third to distal third of the SVC area. Lungs and pleura: No pleural effusions or pneumothorax. Lungs are abnormal with elevation of the le ft diaphragm, and subpulmonic left pleural effusion with what appears to be a possible mass lesion be neath the area of the Port-A-Cath injection access site, measuring up to 3.2 cm.. Mediastinum: Mediastinal contours appear normal. Heart size is normal. Bones and chest wall: No suspicious bony lesions. Old healed mid right clavicular fracture. [place] ing soft tissues appear unremarkable. IMPRESSION: Within an area of the left midlung superimposed upon by the Port-A-Cath port there is a r adiodensity that could represent a mass lesion measuring up to 3.2 cm. Subpulmonic left effusion and mild stranding at the left lung base is also present in this general area and it is possible that th e abnormality represents a pneumonia not present 10/16/16 but present 11/20/16 by plain film. Dictated by: Keon Tinajero M.D. on 12/04/2016 at 9:22 Approved by: Keon Tinajero M.D. on 12/04/2016 at 9:24
--- NOTE | 2016-12-04 09:53 | DRSVH ---
PROCEDURE: CT ANGIO CHEST PULMONARY EMBOLISM ([id number]) INDICATIONS: elevated ddimer, active CA TECHNIQUE: After the administration of intravenous contrast, 2 mm thick sections acquired from the pulmonary api jacqui to the posterior costophrenic angles. 3-dimensional maximum intensity projection (MIP) coronal a nd sagittal reformats were then acquired through the thorax. For radiation dose reduction, the follo wing was used: automated exposure control, adjustment of mA and/or kV according to patient size. COMPARISON: [facility], [place], PET NECK TO MID THIGH STD, 03/22/2016, 9:17. FINDINGS: Image quality: Excellent. Pulmonary arteries: Pulmonary arteries are normal in size, and demonstrate no intraluminal filling d efects to suggest central pulmonary embolism. Lungs and pleura: 2.4 x 1.1 cm spiculated mass in the right lung probably lower lobe. It previously m easured 2.9 x 1.7 cm. There is minimal patchy density at the right lung base, likely subsegmental ate lectasis. A previously noted small pleural effusion in the left chest has increased in size. Central and peripheral airways are patent. Mediastinum: Heart size is normal, without pericardial effusion. No mediastinal or hilar adenopathy . Thoracic aorta is normal in caliber and enhancement. Esophagus is normal in caliber, without hiat al hernia. Bones and chest wall: Port-A-Cath in the left upper chest with the catheter into the central aspect o f the superior vena cava. No suspicious bony lesions. Ribs and thoracic spine appear intact througho ut. Thyroid gland is within normal limits. No axillary or supraclavicular adenopathy. Abdomen: Visualized upper abdominal solid organs appear normal in the early arterial phase of enhanc ement. IMPRESSION: 1. No evidence for pulmonary embolism. 2. No evidence for any dissection of the aorta or great vessels. 3. Decrease in size of the right lung mass probably lower lobe. 4. Increase in size of left pleural effusion. Probable small pericardial effusion present. Dictated by: Omkar Rees M.D. on 12/04/2016 at 9:15 Approved by: Omkar Rees M.D. on 12/04/2016 at 9:51
[2016-12-04] MEDS ORDERED: RANI150C4 PO (10:18)
[2016-12-04 11:09] VITALS: BP 111/83; PULSE 88; RESP 24; O2SAT 100
== END 2016-12-04 11:12 | disposition home or self-care (01) ==
LOC: SED 06:23 → EDBD 06:23 → SED 11:12
DX: I47.1 Supraventricular tachycardia (principal); E11.649 Type 2 diabetes mellitus with hypoglycemia without coma; R10.13 Epigastric pain; I10 Essential (primary) hypertension; K21.9 Gastro-esophageal reflux disease without esophagitis; Z79.4 Long term (current) use of insulin; Z79.82 Long term (current) use of aspirin; Z87.891 Personal history of nicotine dependence; Z91.040 Latex allergy status; Z91.048 Other nonmedicinal substance allergy status
CPT/HCPCS: 36415; 71010; 71275; 80053; 82948; 83735; 83880; 84436; 84443; 84484; 85025; 85378; 85610; 93005; 96360; 99285; J7042; Q9967